=== PATIENT | female | born 1990 | race Caucasian/White ===

== ENCOUNTER 2020-01-04 21:13 | Observation (INO) | payer BC, SELFPAY ==
--- NOTE | 2020-01-04 21:48 | OBADM ---
This patient, Cathy Bennett, admitted to the OB room [facility] for observation. Patient/family oriented to hospital policies and general routines including ID bracelet, bed and alarms, visiting hours, pain management, procedures, bathroom and other care routines, personal items, smoking policy, room service/diet, and visiting hours. Patient/Family are encouraged to report perceived risks to care and to ask questions if they do not understand what they are told or what they should do.
--- NOTE | 2020-01-05 15:54 | PM.OBTRLD ---
OB - Triage/Final Diagnosis Visit Information Date of evaluation: 01/04/20 Reason for evaluation: other (headache)
== END 2020-01-04 22:00 | disposition home or self-care (01) ==
PROVIDERS: Admitting Provider Student in an Organized Health Care Education/Training Program; Visit Provider Student in an Organized Health Care Education/Training Program
DX: O26.893 Other specified pregnancy related conditions, third trimester (principal); R51 Headache; Z3A.39 39 weeks gestation of pregnancy
CPT/HCPCS: G0378; G0379

== ENCOUNTER 2020-01-10 17:53 | Inpatient (IN) | payer BC, SELFPAY ==
[2020-01-10] VITALS (21 sets, daily range): BP systolic 89–133; BP diastolic 51–87; PULSE 71–101; TEMP 36.8; O2SAT 99; BMI 37.0
--- NOTE | 2020-01-10 18:17 | LDADM ---
This patient, Cathy Bennett, was admitted to Labor/Delivery/Recovery 105 on 01/10/20 at 17:53. Plans for labor, pain management and were discussed with patient. Patient/family oriented to hospital policies and general routines including ID bracelet, bed and alarms, visiting hours, pain management, procedures, bathroom and other care routines, personal items, smoking policy, room service/diet and guest tray routines, infant security routines, and visiting hours. Patient/Family are encouraged to report perceived risks to care and to ask questions if they do not understand what they are told or what they should do. See OBIX for further documentation.
[2020-01-10 18:49] LABS: Basophils Percent Auto 0.2 % (0.2-1.2); Eosinophils Percent Auto 0.2 % (0-4.4); Hemoglobin 9.7 g/dL (12.0-15.0); Immature Granulocyte Percent A 0.8 % (0-0.5); Lymphocytes Absolute Auto 2.25 K/mm3 (0.9-3.2); Lymphocytes Percent Auto 18.2 % (18.3-44.2); Mean Corpuscular HGB Conc 33.4 g/dl (32-36); Mean Corpuscular Hemoglobin 28.2 pg (26-34); Mean Corpuscular Volume 84.3 fl (80-100); Mean Platelet Volume 11.6 fl (7.4-10.4); Monocytes Percent Auto 7.8 % (2.6-8.5); Neutrophils Percent Auto 72.8 % (45.5-73.1); Platelet Count Result 221 k/mm3 (150-375); Red Blood Count 3.44 M/mm3 (4.2-5.4); White Blood Count 12.4 K/mm3 (4.5-10.0)
[2020-01-10] MEDS: DINOPROSTONE 10 MG VAG INSERT VAGINAL (18:49)
[2020-01-10] MEDS: FLUOXETINE HCL 20 MG CAP PO (21:40)
[2020-01-10] MEDS: ZOLPIDEM TARTRATE 5 MG TABLET PO (21:42)
[2020-01-10] MEDS: FAMOTIDINE 20 MG/2 ML VIAL IV PUSH (21:43)
[2020-01-11] VITALS (168 sets, daily range): BP systolic 98–151; BP diastolic 49–137; PULSE 60–247; TEMP 36.6–37.8; O2SAT 94–100
[2020-01-11] MEDS: LACTATED RINGERS 1,000 ML 125 ML IV CONT (05:32)
[2020-01-11] MEDS: OXYTOCIN 30 UNITS/NS 500 ML 30 UNITS/500 ML BAG 6 UNITS IV CONT (05:33)
--- NOTE | 2020-01-11 05:46 | P.PNAN_ITS ---
Anes - Eval Pre Procedure Procedure: labor epidural Date/Time: 01/11/20 05:46 Surgeon: dell Pre Op Diagnosis: Induction of Labor Patient Data Age: 29 Gender: F Height: 1.6 m Weight: 94.75 kg Last Vital Signs Temp 36.6 C 01/11/20 05:13 Pulse 84 01/11/20 05:37 BP 120/77 01/11/20 05:37 Pulse Ox 99 01/10/20 22:33 Allergies Allergy/AdvReac Type Severity Reaction Status Date / Time No Known Allergies Allergy Verified 12/12/19 15:39 Home Medications Medication Instructions Recorded Confirmed Type PNV cmb#95-ferrous fumarate-FA 1 tablet PO DAILY 12/12/19 12/12/19 History [] fluoxetine 20 mg PO DAILY 12/12/19 12/12/19 History Laboratory Tests 01/10/20 01/10/20 01/10/20 18:41 18:41 18:41 WBC 12.4 K/mm3 H K/mm3 (4.5-10.0) RBC 3.44 M/mm3 L M/mm3 (4.2-5.4) Hgb 9.7 g/dL L g/dL (12.0-15.0) Hct 29.0 % L % (37.0-47.0) MCV 84.3 fl fl (80-100) MCH 28.2 pg pg (26-34) MCHC 33.4 g/dl g/dl (32-36) RDW 13.0 % % (11.5-14.5) Plt Count 221 k/mm3 k/mm3 (150-375) MPV 11.6 fl H fl (7.4-10.4) Immature Gran % (Auto) 0.8 % H % (0-0.5) Neut % (Auto) 72.8 % % (45.5-73.1) Lymph % (Auto) 18.2 % L % (18.3-44.2) [place] % (Auto) 7.8 % % (2.6-8.5) Eos % (Auto) 0.2 % % (0-4.4) Baso % (Auto) 0.2 % % (0.2-1.2) Lymph # (Auto) 2.25 K/mm3 K/mm3 (0.9-3.2) [place] # (Auto) 1.0 K/mm3 H K/mm3 (0.1-0.6) Eos # (Auto) 0.0 K/mm3 K/mm3 (0-0.3) Baso # (Auto) 0.0 K/mm3 K/mm3 (0.0-0.1) Abs Immat Gran (auto) 0.10 K/mm3 H K/mm3 (0.00-0.031) Absolute Neuts (auto) 9.0 K/mm3 H K/mm3 (1.3-6.7) Absolute Nucleated RBC 0.0 K/mm3 K/mm3 (0.0-0.012) Nucleated RBC % 0.0 % % (0.0-0.2) RPR Pending Blood Type A Positive Antibody Screen Negative Patient hx anesthesia problems: none Family hx anesthesia problems: none [facility] Family History Family History (Updated 12/12/19 @ 15:42 by Abilio Pineda RN) Other No pertinent family history Social History Social History Smoking status: Never smoker Second hand tobacco smoke exposure: No Substance use: never Gender identity (if verbalized by the patient): Female Spiritual care concerns: No Exam Day of Procedure 01/11/20 05:46
[2020-01-11 07:06] LABS: Rapid Plasma Reagin Non-Reactive (NonReactive)
--- NOTE | 2020-01-11 08:30 | WPDOBADMIT ---
Obstetrics - Admit Note Admission Note: record reviewed. Additions to the history and/or subsequent changes in the physical findings follow. 29 y/o G1 at 40 2/7 weeks here for induction of labor. Cervidil last night, has been withdrawn. Receiving oxytocin. GBS neg. AVSS NST reactive TOCO: contractions irregularly ABD soft, nontender, gravid, vertex EXT nontender Cervix 2/80/-2. AROM with clear fluid. A: IUP at term. P: Oxytocin. Anticipate .
--- NOTE | 2020-01-11 12:32 | PM.OBPNLAB ---
Pain Control Date/time seen: 01/11/20 12:32 Comments: Feeling more painful contractions. Pelvic Exam Dilation (cm): 3 Effacement (%): 80 station: -2 Comments: IUPC placed. Contractions Contraction frequency: 3 Contraction pattern: Regular Status status: Category l Assessment and Plan Comments: IUPC placed. She is considering epidural. Continue labor.
[2020-01-11] MEDS: LACTATED RINGERS 1,000 ML 999 ML IV CONT ×2 (12:44→16:41)
[2020-01-11] MEDS: ONDANSETRON INJ 4 MG/2 ML VIAL IV PUSH (16:27)
[2020-01-11] MEDS: FAMOTIDINE 20 MG/2 ML VIAL IV PUSH (16:41)
[2020-01-12] VITALS (21 sets, daily range): BP systolic 109–129; BP diastolic 61–83; PULSE 78–142; RESP 14–20; TEMP 36.6–37.2; O2SAT 93–100
--- NOTE | 2020-01-12 00:05 | PM.OBPNLAB ---
Pain Control Date/time seen: 01/12/20 00:05 Comments: Pushing Pelvic Exam Dilation (cm): 10 Effacement (%): 100 station: +2 Contractions Contraction frequency: 3 Contraction pattern: Regular Status status: Category ll Assessment and Plan Comments: Continue pushing.
[2020-01-12] MEDS: OXYTOCIN 30 UNITS/NS 500 ML 30 UNITS/500 ML BAG 999 UNITS IV CONT (00:42)
--- NOTE | 2020-01-12 00:52 | PM.OBPRVD ---
OB - Delivery Note Procedure Delivery date: 01/12/20 Procedure: Induction of labor with Induction method: per pitocin protocol Delivery monitor: external FHT, external uterine and internal uterine Route of delivery: Laceration description: Perineal - 2nd Degree Delivery repair: vicryl (3-0) Specimen: Yes (cord blood) Estimated blood loss (mL): 130 Anesthesia type: Epidural Disposition: PACU Complications: None Narrative: 29 y/o primigravida at 40 3/7 weeks gestation who presented to the hospital for induction of labor. Cervidil was placed overnight. The following morning, the Cervidil was withdrawn and oxytocin was administered intravenously. Amniotomy was performed with return of clear fluid. She received an epidural for pain control. Her labor progressed and her cervix dilated completely. She pushed with good effort and delivered the infant's head to the perineum from STACY position. A loose nuchal cord was splinted and the body delivered. The cord was reduced. The nose and mouth were bulb suctioned. After a delay, the cord was clamped and cut. The was handed off the field. Cord blood was collected. The placenta delivered spontaneously and was grossly normal in appearance. The usual 3 vessel cord was noted. A second degree midline perineal laceration was sustained. This was reapproximated using 3 0 Vicryl in the usual layered fashion. Excellent hemostasis resulted as did excellent reapproximation of the normal anatomy. Needle and instrument counts were correct. The patient was taken to recovery room in stable condition. The went to the nursery in stable condition. I was present and scrubbed for the entire delivery. Baby Date of : 01/12/20 Time of : 00:32 Weeks of gestation at delivery: 40 gender: Female Weight (pounds): 9 Weight (ounces): 3 presentation: vertex Placenta delivery description: Spontaneous and Normal Configuration cord vessel description: 3 Vessels and Nuchal Cord score one minute: 7 score five minutes: 8
--- NOTE | 2020-01-12 00:55 | PM.OBDSVD ---
DS: Diagnosis Discharge Diagnosis (1) Term : Code(s): Z34.90 - Encounter for supervision of normal , unspecified, unspecified trimester Status: Acute OB - DS: Summary OB Procedures : None OB Procedures Intrapartum: Spontaneous Vag Delivery OB Procedures: : None Time Spent with Patient Time attestation: Total time spent providing and/or coordinating discharge services: DS: Data Data Completed and Pending Labs on day of discharge: Labs from last 24 hours 01/10/20 18:41 RPR Non-reactive Discharge Plan Discharge Attending physician on discharge: Yung Ibrahim Discharging Clinician: Yung Ibrahim Patient Disposition: Home, Self-Care Activity: pelvic rest Diet: regular Discharge Instructions: Call or return if temperature above 100.4? F, increased abdominal pain, increased vaginal bleeding or any new problems. Stand Alone Forms: General Discharge Information Follow-up/Referrals: Yung Ibrahim MD [Physician] - (6 weeks) Discharge Medications: New ibuprofen 600 mg tablet 600 mg PO Q6H PRN (Reason: cramps) Qty: 30 RF: 0 ferrous sulfate 325 mg (65 mg iron) tablet 325 mg PO DAILY Qty: 30 RF: 0 fluoxetine 20 mg Tablet 20 mg PO DAILY Qty: 30 RF: 2 No Action fluoxetine 20 mg Capsule 20 mg PO DAILY RF: 0 PNV cmb#95-ferrous fumarate-FA [] 28 mg iron- 800 mcg Tablet 1 tablet PO DAILY RF: 0 Date of admission: 01/10/20 17:53 Primary Care Provider: UNKNOWN,DOCTOR Admitting Provider: Yung Ibrahim Attending physician on admission: Yung Ibrahim
[2020-01-12] MEDS: OXYTOCIN 30 UNITS/NS 500 ML 30 UNITS/500 ML BAG 125 UNITS IV CONT (01:24)
[2020-01-12] MEDS: IBUPROFEN 600 MG TABLET PO ×4 (01:36→23:37)
[2020-01-12] MEDS: BENZOCAINE 20% AER SPR (*SP) 56 GM CAN 1 SPRAY TOPICAL (02:49)
[2020-01-12] MEDS: WITCH HAZEL 40 PADS 1 PAD TOPICAL (02:49)
--- NOTE | 2020-01-12 07:18 | PM.OBPNVD ---
OB - PN: Subj Subjective Date/time seen: 01/12/20 07:18 Patient comments: no complaints, pain well controlled and tolerating diet [place] feeding status: exclusively breast feeding Narrative: patient doing well this AM. No complaints. Pain is well controlled. She reports minimal bleeding. She is resting comfortably in bed, has not yet ambulated. She has not yet attempted PO. She denies N/V, fever, chills. OB - PN: Obj Data Labs CBC & Chem 7: 01/10/20 18:41 OB - PN A/P Plan day: 1 Plan: routine care Comments: patient doing well H/H pending for this AM continue routine care Time Spent With Patient Time: Total time spent is greater than 50% in coordination of care (as documented) at patient's floor/unit and/or counseling patient: Time with patient: less than 15 minutes Review of Systems Review of Systems: All systems reviewed & are unremarkable except as noted in HPI and below Exam Const: General: comfortable and no acute distress Resp: Effort & Inspection: normal respiratory effort Cardio: Rate: regular rate GI: GI Palp: Yes Soft to palpation and No Tenderness to palpation present (GI) Auscultation: normal bowel sounds Other: fundus firm and below umbilicus. Psych: Affect: normal affect
[2020-01-12] MEDS: ACETAMINOPHEN 325 MG TABLET 650 MG PO (09:50)
[2020-01-12] MEDS: FLUOXETINE HCL 20 MG CAP PO (09:50)
[2020-01-12] MEDS: POLYSACCHARIDE IRON COMPLEX 150 MG CAPSULE PO ×2 (09:51→15:53)
[2020-01-12] MEDS: DOCUSATE SODIUM 100 MG CAPSULE PO ×2 (09:51→15:53)
[2020-01-12] MEDS: MULTIVIT/MIN/PREN/FOL AC/IRON TABLET 1 TAB PO (09:51)
--- NOTE | 2020-01-12 10:05 | PC.NURSE ---
Consult with pt., mother reports infant has been sleepy and using a nipple shield for feedings. Mother feels she needs to wean infant quickly from shield. Reviewed shield is used to assist and maintain latch, and does not need to quickly wean. Discussed nipple shield precautions and possible complications. Instructions given on application and cleaning of shield. Patient able to return demonstration on proper application of shield. Discussed the need to initiate pumping if continues to nurse with the shield. Patient verbalizes understanding. Demonstrated stimulation techniques to wake for feeding. Several minutes of stimulation to wake infant. Assisted with infant to breast. Reviewed positioning/alignment in cross cradle, holding breast in U hold and guided asymmetrical latch on. Discussed rational for each. Infant was able to latch correctly. nursed slowly at first needing constant stimulation, within a few minutes began nursing eagerly, with steady draws and occasional swallowing noted. Reviewed signs of a correct latch, effective nursing and suck swallow ratio. Infant was able to maintain latch without discomfort to mother. Nipple care reviewed. Advised to continue to stimulate to keep awake and nursing effectively for increased intake and to assist with maintaining deep latch. Instructed mother to call out for RN assistance if she is unable to latch for feeding or she has discomfort with nursing. Instructed feeding should be initiated three hours from start of last feeding or if feeding cues are noted before. Mother voiced understanding of information shared.
--- NOTE | 2020-01-12 10:45 | PC.NURSE ---
Breast pump provided due to nipple shield use. Instructions given on breast pump care and usage, pumping schedule, nipple care, and collection and storage of breast milk. Encouraged [id number], breast massage and manual expression to stimulate supply. Assessed patient for correct flange size, placement and draw. Patient verbalizes and demonstrates understanding of instructions.
--- NOTE | 2020-01-12 13:35 | PC.NURSE ---
Mother called out for assist with feeding. Demonstrated stimulation techniques to wake for feeding. Assisted with to breast. Reviewed positioning/alignment in football, holding breast in C hold and guided asymmetrical latch on. Attempted to breast without shield, infant was unable to draw nipple in. With shield in place, infant was able to latch correctly. Infant nursed eagerly, with steady draws and occasional swallowing noted. Reviewed signs of a correct latch, effective nursing and suck swallow ratio. was able to maintain latch without discomfort to mother. Nipple care reviewed. Instructed mother to call out for RN assistance if she is unable to latch infant for feeding or she has discomfort with nursing. Instructed feeding should be initiated three hours from start of last feeding or if feeding cues are noted before. Mother voiced understanding of information shared.
[2020-01-12] MEDS: LANOLIN (LANSINOH) 7.5 GM CREAM 1 APPLIC TOPICAL (23:40)
[2020-01-13] MEDS: ACETAMINOPHEN 325 MG TABLET 650 MG PO (04:46)
[2020-01-13 05:26] LABS: Hematocrit 26.2 % (37.0-47.0); Hemoglobin 8.4 g/dL (12.0-15.0)
[2020-01-13 08:25] VITALS: BP 120/72; PULSE 70; RESP 18; TEMP 37.1; O2SAT 100
--- NOTE | 2020-01-13 09:19 | PM.OBPNVD ---
OB - PN: Subj Subjective Date/time seen: 01/13/20 09:19 Narrative: Pain OK. OB - PN: Obj Data Labs CBC & Chem 7: 01/13/20 04:51 Labs: Laboratory Results - last 24 hr 01/13/20 04:51 Hgb 8.4 L Hct 26.2 L OB - PN A/P Plan Comments: A: PPD#1, doing well. P: Routine care. Exam Psych: Other: AVSS ABD soft, nontender, fundus firm EXT nontender
--- NOTE | 2020-01-13 10:00 | PC.NURSE ---
Mother called out for assist feeding. Mother reports she continues to breastfeed with shield, infant was awake most of the night with fussiness. has not fed for 5 hours. Demonstrated stimulation techniques to wake for feeding. Assisted with to breast. Reviewed positioning/alignment in football, holding breast in C hold and guided asymmetrical latch on. Discussed rational for each. Infant was able to latch correctly. nursed eagerly, with steady draws and occasional swallowing noted. Reviewed signs of a correct latch, effective nursing and suck swallow ratio. Infant was able to maintain latch without discomfort to mother. Nipple care reviewed. Suggested mother continue to stimulate during feeding to increase intake and assist infant with maintaining deep latch. Parents are concerned with jaundice and weight loss, advised both are WNL at this time. Reviewed output WNL at this time. Discussed the options for supplementation, parents would like to supplement 15 mls after each feeding. Mother will continue to pump after each feeding and offer EBM as part of supplement if available. Instructed mother to call out for RN assistance if she is unable to latch infant for feeding or she has discomfort with nursing. Instructed feeding should be initiated three hours from start of last feeding or if feeding cues are noted before. Mother voiced understanding of information shared.
[2020-01-13] MEDS: MULTIVIT/MIN/PREN/FOL AC/IRON TABLET 1 TAB PO (10:14)
[2020-01-13] MEDS: FLUOXETINE HCL 20 MG CAP PO (10:15)
[2020-01-13] MEDS: POLYSACCHARIDE IRON COMPLEX 150 MG CAPSULE PO ×2 (10:15→15:48)
[2020-01-13] MEDS: DOCUSATE SODIUM 100 MG CAPSULE PO ×2 (10:17→19:24)
[2020-01-13] MEDS: IBUPROFEN 600 MG TABLET PO ×2 (15:47→21:12)
[2020-01-13 19:30] VITALS: BP 129/71; PULSE 81; RESP 16; TEMP 36.6; O2SAT 99
[2020-01-14 08:10] VITALS: BP 132/84; PULSE 74; RESP 18; TEMP 37.7; O2SAT 98
[2020-01-14] MEDS: MULTIVIT/MIN/PREN/FOL AC/IRON TABLET 1 TAB PO (10:00)
[2020-01-14] MEDS: POLYSACCHARIDE IRON COMPLEX 150 MG CAPSULE PO (10:00)
[2020-01-14] MEDS: IBUPROFEN 600 MG TABLET PO (10:00)
[2020-01-14] MEDS: DOCUSATE SODIUM 100 MG CAPSULE PO (10:00)
[2020-01-14] MEDS: FLUOXETINE HCL 20 MG CAP PO (11:05)
--- NOTE | 2020-01-14 12:46 | PM.OBPNVD ---
OB - PN: Subj Subjective Date/time seen: 01/14/20 12:46 Narrative: Pain OK. Would like to go home. OB - PN: Obj Data Labs CBC & Chem 7: 01/13/20 04:51 OB - PN A/P Plan Comments: A: PPD#2, doing well. P: Home to f/u 6 weeks. Exam Psych: Other: AVSS ABD soft, nontender, fundus firm EXT nontender
[2020-01-15 09:13] VITALS: BP 126/74; PULSE 85; RESP 20; TEMP 36.6; O2SAT 99
== END 2020-01-14 14:48 | disposition home or self-care (01) | DRG 807 ==
LOC: ANHLDR 01-12 00:56 → ANHOB2 01-12 03:34
PROVIDERS: Admitting Provider Obstetrics & Gynecology; Visit Provider Obstetrics & Gynecology
DX: O69.81X0 Labor and delivery complicated by cord around neck, without compression, not applicable or unspecified (principal); Z37.0 Single live birth; Z3A.40 40 weeks gestation of pregnancy; O70.1 Second degree perineal laceration during delivery; O36.8330 Maternal care for abnormalities of the fetal heart rate or rhythm, third trimester, not applicable or unspecified; O99.344 Other mental disorders complicating childbirth; F41.9 Anxiety disorder, unspecified
CPT/HCPCS: 36415; 85014; 85018; 85025; 86592; 86850; 86900; 86901; A9270; J2405; J2590; J2795; J3010; J7120

== ENCOUNTER 2020-12-24 08:31 | Emergency (ER) | payer BC, SELFPAY ==
--- NOTE | ~2020-12-24 | US_ITS ---
EXAMINATION: US OB <= 14 weeks fetus DATE: 12/24/2020 12:50 INDICATION: Right red vaginal bleeding during first trimester of TECHNIQUE: Real-time pelvic ultrasound utilizing both a transvaginal and transabdominal probe was pe rformed. The interpreting radiologist was not present for the study. COMPARISON: None. FINDINGS: The uterus measures 9.3 x 11.7 x 5.8 x 7.7 cm. There is an intrauterine gestational sac. A yolk sac and possible pole are identified. The crown rump length of the presumptive pole measures 4 mm, which correlates with an estimated gestational age of 6 weeks and 1 days. No discernible heart motion is evident on color or M-mode Doppler. There is subtle echogenicity suggesting debris wi thin the gestational sac. Small ill-defined region of decreased echogenicity along the margins of the gestational sac suspicious for small subchorionic hematoma. The right ovary measures 3.3 x 1.6 x 2.7 cm. The left ovary measures 2.3 x 1.7 x 2.4 cm. 12 mm anecho ic likely corpus luteum cyst at the left ovary. There is no free fluid in the pelvis. IMPRESSION: 1. Single intrauterine gestational sac with possible 4 mm pole which is without discernible fet al heart motion on color Doppler which could be due to early . Both the absence of discernib le heart motion however and the increased size of the yolk sac which measures 9 mm do raise con cern for failed . 2. Gestational age by ultrasound presumptive 4 mm pole of 6 weeks 1 day(s) +/- 3 day(s) with u ltrasound estimated date of delivery ([facility]) of 08/18/2021. 3. Suggestion of a small poorly defined subchorionic hematoma along the margins of the gestational sa c. Reviewed, dictated and finalized at location A. IMPRESSION: 1. Single intrauterine gestational sac with possible 4 mm pole which is w ithout discernible heart motion on color Doppler which could be due to ea rly . Both the absence of discernible heart motion however and t he increased size of the yolk sac which measures 9 mm do raise concern for fail ed . 2. Gestational age by ultrasound presumptive 4 mm pole of 6 weeks 1 day( s) +/- 3 day(s) with ultrasound estimated date of delivery ([facility]) of 08/18/2021. 3. Suggestion of a small poorly defined subchorionic hematoma along the margins of the gestational sac.
[2020-12-24 08:34] VITALS: BP 128/79; PULSE 64; RESP 18; TEMP 36.4; O2SAT 100
[2020-12-24 10:20] VITALS: BP 112/64; PULSE 62; RESP 20; O2SAT 100
[2020-12-24] MEDS: SODIUM CHLORIDE 0.9% IV 1,000 ML 999 ML IV CONT (11:00)
[2020-12-24 11:11] LABS: Basophils Percent Auto 0.4 % (0.2-1.2); Eosinophils Percent Auto 0.9 % (0-4.4); Hematocrit 34.6 % (37.0-47.0); Hemoglobin 11.9 g/dL (12.0-15.0); Immature Granulocyte Absolute 0.01 K/mm3 (0.00-0.031); Immature Granulocyte Percent A 0.2 % (0-0.5); Lymphocytes Absolute Auto 1.63 K/mm3 (0.9-3.2); Lymphocytes Percent Auto 35.5 % (18.3-44.2); Mean Corpuscular HGB Conc 34.4 g/dl (32-36); Mean Corpuscular Hemoglobin 30.6 pg (26-34); Mean Corpuscular Volume 88.9 fl (80-100); Monocytes Absolute Auto 0.4 K/mm3 (0.1-0.6); Monocytes Percent Auto 9.2 % (2.6-8.5); Neutrophils Absolute Auto 2.5 K/mm3 (1.3-6.7); Neutrophils Percent Auto 53.8 % (45.5-73.1); Platelet Count Result 188 k/mm3 (150-375); Red Blood Count 3.89 M/mm3 (4.2-5.4); Red Cell Distribution Width 11.9 % (11.5-14.5); White Blood Count 4.6 K/mm3 (4.5-10.0)
[2020-12-24 11:21] LABS: Add Urine Microscopic? YES; Alanine Aminotransferase 12 U/L (4-35); Albumin Level 4.1 g/dL (3.5-5.1); Alkaline Phosphatase 50 U/L (38-126); Anion Gap 5 mmol/L (8-16); Appearance Urine Clear (Clear); Aspartate Amino Transferase 21 U/L (14-36); Bilirubin Urine Negative (Negative); Bilirubin,Total 0.5 mg/dL (0.2-1.3); Blood Urea Nitrogen 9 mg/dL (7-17); Blood Urine 1+ (Negative); Calcium 8.8 mg/dL (8.4-10.2); Carbon Dioxide 27 mmol/L (22-30); Chloride 106 mmol/L (98-107); Color Urine Straw (Yellow); Estimated CRCL calculation 124 ml/min; Estimated Glomerular Filt Rate > 60; Glucose 97 mg/dL (65-105); Glucose Urine UA Negative (Negative); Ketones Urine Negative (Negative); Leukocyte Esterase Ur Negative LEU/UL (Negative); Nitrate Urine Negative (Negative); Potassium 4.1 mmol/L (3.4-5.0); Protein Urine Negative (Negative); RBC Urine 0-2 /hpf (0-2); Sodium 138 mmol/L (137-145); Specific Grav Ur 1.005 (1.001-1.035); Squamous Epithelial Cell Urine Rare /hpf (Few); Urobilinogen Urine Negative mg/dL (<2.0); WBC Urine 0-3 /hpf
[2020-12-24 11:56] VITALS: BP 94/51; PULSE 55; O2SAT 100
--- NOTE | 2020-12-24 13:37 | ED.GENADULT ---
HPI - General Adult General Chief complaint: Vaginal Bleeding Stated complaint: 10 wk preg with vag bleeding Time Seen by Provider: 12/24/20 10:06 Source: patient, family and old records reviewed Mode of arrival: ambulatory Limitations: no limitations History of Present Illness HPI narrative: Patient is a 30-year-old female who presents to emergency department for evaluation of cramping in the pelvis as well as some light bleeding noticed that this morning patient is at 10 weeks for last menstrual period has follow-up with her dye house hand on Saturday Dr. Ibrahim patient on arrival is in no distress denying any pain denies any recent illness injury or trauma and is otherwise resting comfortably in the room in no distress Related Data Home Medications Medication Instructions Recorded Confirmed fluoxetine 40 mg PO DAILY 12/24/20 Allergies Allergy/AdvReac Type Severity Reaction Status Date / Time No Known Allergies Allergy Verified 12/24/20 08:37 Review of Systems Review of Systems: All systems reviewed & are unremarkable except as noted in HPI and below PMFSH Family History Family History (Updated 12/12/19 @ 15:42 by Abilio Pineda RN) Other No pertinent family history Social History Social History Smoking status: Never smoker Second hand tobacco smoke exposure: No Substance use: never Gender identity (if verbalized by the patient): Female Spiritual care concerns: No Exam Narrative: Exam Narrative: GENERAL: Well-appearing, well-nourished, and in no acute distress. HEAD: Normocephalic, atraumatic. EYES: PERRLA and EOMI. ENT: Nares clear, no rhinorrhea or epistaxis. Mucous membranes moist. CHEST: Clear to auscultation. No respiratory distress. No wheezes rales or rhonchi HEART: Regular rate and rhythm. No murmur heard. Normal peripheral pulses. ABDOMEN: Soft, nontender, nondistended EXTREMITIES: Normal range of motion. No edema. SKIN: Warm, dry, no rash. NEURO: No focal deficits. Alert and oriented x3. PSYCH: Normal mood and affect. Course Course Emergency Course: Patient in the room no distress aware of case findings treatment plan and diagnosis will follow with dye house hand on Saturday hemodynamically stable no distress agreeing to follow-up as an directed given reasons to return Consultations Consultation #1: Case discussed with Dr. Henry and will follow the patient in clinic on Saturday Date: 12/24/20 Time: 13:40 Vital Signs Vital signs: Vital Signs Temperature 97.5 F L 12/24/20 08:34 Pulse Rate 64 12/24/20 08:34 Respiratory Rate 18 12/24/20 08:34 Blood Pressure 128/79 12/24/20 08:34 Pulse Oximetry 100 12/24/20 08:34 Temperature 97.5 F L 12/24/20 08:34 Pulse Rate 55 L 12/24/20 11:56 Respiratory Rate 20 12/24/20 10:20 Blood Pressure 94/51 L 12/24/20 11:56 Pulse Oximetry 100 12/24/20 11:56 Medical Decision Making MDM Narrative Medical decision making narrative: Patient in the room in no distress aware of case findings treatment plan and diagnosis. Patient nontoxic-appearing Vital Signs Vital Signs: Vital Signs Temperature 97.5 F L 12/24/20 08:34 Pulse Rate 64 12/24/20 08:34 Respiratory Rate 18 12/24/20 08:34 Blood Pressure 128/79 12/24/20 08:34 Pulse Oximetry 100 12/24/20 08:34 Temperature 97.5 F L 12/24/20 08:34 Pulse Rate 55 L 12/24/20 11:56 Respiratory Rate 20 12/24/20 10:20 Blood Pressure 94/51 L 12/24/20 11:56 Pulse Oximetry 100 12/24/20 11:56 Lab Data Result diagrams: 12/24/20 10:52 12/24/20 10:52 Labs: Lab Results 12/24/20 12/24/20 12/24/20 Range/Units 10:52 10:52 10:52 WBC 4.6 (4.5-10.0) K/mm3 RBC 3.89 L (4.2-5.4) M/mm3 Hgb 11.9 L D (12.0-15.0) g/dL Hct 34.6 L (37.0-47.0) % MCV 88.9 (80-100) fl MCH 30.6 (26-34) pg MCHC 34.4 (32-36) g/dl RDW 11.9 (11.5-14.5) % Plt
[2020-12-24 14:22] VITALS: PULSE 86; O2SAT 100
== END 2020-12-24 14:23 | disposition home or self-care (01) ==
PROVIDERS: Emergency Medicine Emergency Medical Services; Emergency Provider Emergency Medicine
DX: O26.891 Other specified pregnancy related conditions, first trimester (principal); R10.2 Pelvic and perineal pain; Z3A.10 10 weeks gestation of pregnancy
CPT/HCPCS: 36415; 76801; 80053; 81001; 84702; 85025; 96360; 99284; J7030

== ENCOUNTER → 2020-12-27 03:19 | Outpatient (CLI) | payer BC, SELFPAY ==
[2020-12-27 20:31] LABS: SARS-CoV-2 RNA PCR Negative
== END ==
PROVIDERS: Visit Provider Obstetrics & Gynecology
DX: Z01.812 Encounter for preprocedural laboratory examination (principal); Z20.822 Contact with and (suspected) exposure to COVID-19
CPT/HCPCS: C9803; U0003; U0005

== ENCOUNTER 2020-12-28 02:46 | Day surgery (SDC) | payer BC, SELFPAY ==
[2020-12-26 15:08] VITALS: BMI 34.5
[2020-12-28 09:36] VITALS: BP 114/61; PULSE 81; RESP 16; TEMP 36.7; O2SAT 100
[2020-12-28] MEDS: LACTATED RINGERS 1,000 ML 30 ML IV CONT (09:45)
[2020-12-28] MEDS: ACETAMINOPHEN 500 MG TABLET 1000 MG PO (09:50)
[2020-12-28 09:58] VITALS: BMI 34.7
--- NOTE | 2020-12-28 10:44 | PM.IMHP ---
H&P: HPI History of Present Illness Date/Time: 12/28/20 10:44 30 y/o G1 with LMP 10/14/20, putting her at 10w5d gestation. Has had bleeding. Ultrasound showed IUP with CRL 6w2d, no cardiac motion. Chief Complaint: Miscarriage Review of Systems Review of Systems: All systems reviewed & are unremarkable except as noted in HPI and below PMFSH Past Medical History Medical History Thyroid nodule Surgical History Surgical History History of LEEP (loop electrosurgical excision procedure) of cervix complicating Family History Family History Other No pertinent family history Social History Social History Smoking status: Never smoker Second hand tobacco smoke exposure: No Alcohol intake: never Substance use: never Substance use type: does not use Living arrangements: with family Gender identity (if verbalized by the patient): Female Spiritual care concerns: No Meds Home Medications and Allergies Home Medications Medication Instructions Recorded Confirmed Type fluoxetine 40 mg PO DAILY 12/24/20 12/26/20 History vwwevjwv-rwt-Xl-FA 1 tablet PO DAILY 12/26/20 12/26/20 History [] Allergies Allergy/AdvReac Type Severity Reaction Status Date / Time No Known Allergies Allergy Verified 12/28/20 09:33 Vital Signs Vital Signs - 24 hr 12/28/20 09:36 Temperature 36.7 C Pulse Rate 81 Respiratory Rate 16 Blood Pressure 114/61 Pulse Oximetry 100 Exam Narrative: Exam Narrative: AVSS Const: Orientation/consciousness: patient oriented x3 Other: Well-developed, well-nourished female in no acute distress. Neck: Thyroid: diffusely enlarged Lymphatic: no lymphadenopathy noted (in neck, axilla or inguinal nodes) Resp: Effort & Inspection: normal respiratory effort Auscultation: clear to auscultation bilaterally Cardio: Rate: regular rate Rhythm: regular rhythm Heart sounds: S1 normal heart sound present and S2 normal heart sound present GI: Other: ABD: Soft, nontender, nondistended. No guarding or rebound tenderness. No hepatosplenomegaly. : General: Yes no CVA tenderness Other: Deferred to OR Back/Spine/Pelvis: Back: no CVA tenderness Skin: General skin exam: normal color and no rashes or lesions noted Neuro: General: patient oriented x3 Extrem: Other: Extremities: nontender with no edema Psych: Mental Status: mental status grossly normal Affect: normal affect Assessment and Plan Assessment and plan (1) Incomplete : Code(s): O03.4 - Incomplete spontaneous without complication Status: Acute Assessment and Plan: A: Incomplete SAB. P: Offered expectant management vs. dilation with suction curettage. She understands risks of surgery to include risks of anesthesia, risks of pain, infection, bleeding, blood products, thromboembolic phenomena and damage to adjacent structures such as bowel, bladder, ureters, blood vessels and nerves. She understands all these risks and elects to proceed with surgery.
--- NOTE | 2020-12-28 11:27 | WPDANESEPPF ---
Anes - Initial Pre Proc Eval Procedure: Operation Date: 12/28/20 11:30 Proposed Procedures p Suction Dilatation and Curettage - Yung Ibrahim MD Date/Time: 12/28/20 11:27 Surgeon: Yung Ibrahim MD Pre Op Diagnosis: missed AB Patient Data Age: 30 Gender: F Height: 5 ft 3 in Weight: 88.8 kg Last Vital Signs Temp 36.7 C 12/28/20 09:36 Pulse 81 12/28/20 09:36 Resp 16 12/28/20 09:36 BP 114/61 12/28/20 09:36 Pulse Ox 100 12/28/20 09:36 Allergies Allergy/AdvReac Type Severity Reaction Status Date / Time No Known Allergies Allergy Verified 12/28/20 09:33 Home Medications Medication Instructions Recorded Confirmed Type fluoxetine 40 mg PO DAILY 12/24/20 12/26/20 History qipkcxsd-zih-Lh-FA 1 tablet PO DAILY 12/26/20 12/26/20 History [] Patient hx anesthesia problems: none Family hx anesthesia problems: none [facility] Past Medical History Medical History Thyroid nodule Surgical History Surgical History History of LEEP (loop electrosurgical excision procedure) of cervix complicating Family History Family History Other No pertinent family history Social History Social History Smoking status: Never smoker Second hand tobacco smoke exposure: No Alcohol intake: never Substance use: never Substance use type: does not use Living arrangements: with family Gender identity (if verbalized by the patient): Female Spiritual care concerns: No Anes - Eval Final PreProcedure Day of Procedure 12/28/20 11:27 Patient weight: overweight Heart: regular rate and rhythm Lungs: clear to auscultation Airway: Mallampati scale class II Neurological: alert and oriented Last oral intake: >/= 8 hours ASA classification: II Emergent: no Anesthetic plan: proceed Anesthesia type and monitoring: general GIVS and standard monitoring Informed Consent: The patient's anesthetic plan and its attendant risks and benefits were discussed with the patient/family/POA. Questions were solicited and answers provided to the satisfaction of the patient/family/POA.
--- NOTE | 2020-12-28 11:45 | SUR.PREOP ---
1145- Clarified with Dr. Ibrahim patient is A positive and if RH type needing to be drawn today prior to procedure. Per Dr. Ibrahim labs do not need to be obtained with patient being A positive type.
--- NOTE | 2020-12-28 11:48 | WPDHPUPDATE1 ---
History and Physical Update Update Date/Time: 12/28/20 11:48 History and Physical has been reviewed, including an updated exam of the patient. There are NO changes in the patient's condition. Risks, benefits, and alternatives have been discussed and questions answered. Patient agrees to proceed with procedure.
--- NOTE | 2020-12-28 12:05 | SUR.PREOP ---
1205- Notified patient and spouse, Yvon OR delayed at this time approximately 35-45 minutes. Patient and spouse verbalized understanding.
--- NOTE | 2020-12-28 12:54 | PM.PROC ---
Procedure Note - Detailed Date of procedure: 12/28/20 Pre-op diagnosis: missed AB Incomplete SAB Post-op diagnosis: same Procedure performed: Dilation and suction curettage Description of procedure: The patient was taken to the operating room where she was prepared and draped in the usual sterile fashion in the dorsal lithotomy position. The bladder was drained with a red rubber catheter. A sterile speculum was placed into the vagina. The anterior lip of the cervix was grasped with a single-tooth tenaculum. Ten mL of 1% lidocaine was administered in a paracervical block. The cervix was gently dilated using Hegar dilators until an 8mm dilator could be passed. The 8mm curved tip suction curette was advanced. Suction curettage was performed and products of conception were aspirated. Sharp curettage was then performed until a good uterine cry was noted. A final pass with the suction curette was made. The tenaculum was removed. Hemostasis was excellent. Sponge, lap, needle and instrument counts were correct. The patient was taken to the recovery room in stable condition. I was present and scrubbed for the entire procedure. Implants: None Anesthesia: local (1% lidocaine paracervical block) Surgeon: Yung Ibrahim MD Estimated blood loss (mL): 30 Drains: No Packing: No Pathology: yes (Endometrial curettings) Complications: None Condition: stable Disposition: PACU Findings: Products of conception noted.
[2020-12-28 12:57] VITALS: BP 95/50; PULSE 86; RESP 16; O2SAT 91
[2020-12-28 13:25] VITALS: BP 101/53; PULSE 58; RESP 16; O2SAT 100
[2020-12-28 13:50] VITALS: BP 100/55; PULSE 60; RESP 16
== END 2020-12-28 14:00 | disposition home or self-care (01) ==
PROVIDERS: Visit Provider Obstetrics & Gynecology
PROC: (CPT 59820; principal; 2020-12-28 11:30)
DX: O02.1 Missed abortion (principal)
CPT/HCPCS: 59820; 88305; A9270; J1100; J1885; J2250; J2405; J2704; J3010; J7120

== ENCOUNTER 2021-08-21 14:35 | Outpatient (CLI) | payer BC, SELFPAY ==
--- NOTE | ~2021-08-21 | US_ITS ---
EXAMINATION: US thyroid DATE: 08/21/2021 16:00 INDICATION: Thyroid nodules. TECHNIQUE: Multiple ultrasound images of the thyroid were obtained. COMPARISON: None. FINDINGS: The right thyroid lobe measures 5.1 x 1.7 x 2.0 cm. The left thyroid lobe measures 5.1 x 1.7 x 2.4 c m. There are multiple wider than tall, solid or predominant solid hypoechoic nodules with smooth mar gins and without echogenic foci (TI-RADS 4, moderately suspicious , FNA if >=1.5 cm, annual followup is >=1 cm) scattered throughout both thyroid lobes. The largest include a 2.4 cm nodule at the isthmu s, 2.2 cm and 2.0 cm nodules in the left thyroid lobe and 1.4 cm in the right thyroid lobe. IMPRESSION: 1. Multinodular goiter. There are 3 nodules meeting criteria for ultrasound-guided biopsy and would r ecommend biopsy of the 2 largest nodules at the isthmus and left thyroid lobe. Reviewed, dictated and finalized at location A. [employer] [facility] IMPRESSION: 1. Multinodular goiter. There are 3 nodules meeting criteria for ultrasound-jose ded biopsy and would recommend biopsy of the 2 largest nodules at the isthmus a nd left thyroid lobe.
== END 2021-08-21 14:36 | disposition home or self-care (01) ==
PROVIDERS: Visit Provider Obstetrics & Gynecology
DX: E04.9 Nontoxic goiter, unspecified (principal)
CPT/HCPCS: 76536

== ENCOUNTER 2021-10-03 10:37 | Emergency (ER) | payer BC, SELFPAY ==
--- NOTE | ~2021-10-03 | CT_ITS ---
EXAMINATION: CT BRAIN W/O DATE: 10/03/2021 12:45 INDICATION: Migraine headaches TECHNIQUE: Computed tomography (CT) of the head was performed without intravenous contrast. The dose- length product was 605.33 mGy-cm. Automated exposure control and iterative reconstruction technique w ere employed. COMPARISON: No prior studies for comparison. FINDINGS: Normal brain parenchymal volume for age. Normal vieira-white differentiation. No acute intrac ranial hemorrhage, infarction, mass or mass effect. No ventriculomegaly or midline shift. Midline sagittal images demonstrate a normal corpus callosum, c raniovertebral junction and sella turcica. Basilar cisterns are patent. There is mucosal thickening of the left maxillary and ethmoid sinuses with air-fluid level. IMPRESSION: 1. No acute intracranial abnormality. 2: Mild sinusitis. Reviewed, dictated and finalized at location B. [employer]KER
[2021-10-03 10:51] VITALS: BP 140/79; PULSE 78; RESP 15; TEMP 36.7; O2SAT 100
[2021-10-03 10:59] VITALS: O2SAT 100
[2021-10-03 11:00] VITALS: O2SAT 99
[2021-10-03 12:06] LABS: Add Urine Microscopic? YES; Appearance Urine Clear (Clear); Bacteria Urine 2+ /hpf; Bilirubin Urine Negative (Negative); Blood Urine Negative (Negative); Color Urine Yellow (Yellow); Glucose Urine UA Negative (Negative); Ketones Urine Trace mg/dL (Negative); Leukocyte Esterase Ur Trace LEU/UL (Negative); Mucus Urine Rare /lpf; Nitrate Urine Negative (Negative); Protein Urine Negative (Negative); RBC Urine 0-2 /hpf (0-2); Specific Grav Ur 1.011 (1.001-1.035); Squamous Epithelial Cell Urine Occasional /hpf (Few); WBC Urine 0-3 /hpf
[2021-10-03] MEDS: SODIUM CHLORIDE 0.9% IV 1,000 ML 999 ML IV CONT (12:08)
[2021-10-03] MEDS: ONDANSETRON INJ 4 MG/2 ML VIAL IV PUSH (12:18)
[2021-10-03 12:42] LABS: Thyroid Stimulating Hormone Reflex 0.084 uIU/mL (0.465-4.68)
[2021-10-03] MEDS: diphenhydrAMINE HCl INJ 50 MG/ML VIAL 25 MG IV PUSH (13:25)
[2021-10-03 13:31] LABS: Basophils Percent Auto 0.2 % (0.2-1.2); Eosinophils Percent Auto 0.2 % (0-4.4); Hematocrit 32.8 % (37.0-47.0); Hemoglobin 11.4 g/dL (12.0-15.0); Immature Granulocyte Absolute 0.09 K/mm3 (0.00-0.031); Immature Granulocyte Percent A 0.8 % (0-0.5); Lymphocytes Absolute Auto 1.04 K/mm3 (0.9-3.2); Lymphocytes Percent Auto 9.7 % (18.3-44.2); Mean Corpuscular HGB Conc 34.8 g/dl (32-36); Mean Corpuscular Hemoglobin 31.2 pg (26-34); Mean Corpuscular Volume 89.9 fl (80-100); Monocytes Absolute Auto 0.7 K/mm3 (0.1-0.6); Monocytes Percent Auto 6.8 % (2.6-8.5); Neutrophils Absolute Auto 8.8 K/mm3 (1.3-6.7); Neutrophils Percent Auto 82.3 % (45.5-73.1); Platelet Count Result 157 k/mm3 (150-375); Red Blood Count 3.65 M/mm3 (4.2-5.4); Red Cell Distribution Width 12.2 % (11.5-14.5); White Blood Count 10.7 K/mm3 (4.5-10.0)
[2021-10-03] MEDS: KETOROLAC 15 MG/ML VIAL (*BKC) IV PUSH (13:45)
[2021-10-03 14:18] LABS: Alanine Aminotransferase 13 U/L (4-35); Albumin Level 2.9 g/dL (3.5-5.1); Alkaline Phosphatase 73 U/L (38-126); Anion Gap 8 mmol/L (8-16); Aspartate Amino Transferase 17 U/L (14-36); Bilirubin,Total 0.3 mg/dL (0.2-1.3); Blood Urea Nitrogen 9 mg/dL (7-17); Carbon Dioxide 21 mmol/L (22-30); Chloride 104 mmol/L (98-107); Estimated CRCL calculation 150 ml/min; Estimated Glomerular Filt Rate > 60; Glucose 88 mg/dL (65-110); Potassium 3.8 mmol/L (3.4-5.0); Sodium 133 mmol/L (137-145)
[2021-10-03 14:29] VITALS: BP 126/78; PULSE 74; RESP 16; TEMP 37; O2SAT 98
--- NOTE | 2021-10-03 15:18 | PC.NURSE ---
in room drinking soda and eating chips, no distress, skin pwd and denies any pain
[2021-10-03 16:03] VITALS: BP 126/80; PULSE 78; RESP 16; TEMP 36.6; O2SAT 100
--- NOTE | 2021-10-03 20:02 | ED.GENADULT ---
HPI - General Adult General Chief complaint: Headache Stated complaint: migraine Time Seen by Provider: 10/03/21 11:10 Source: patient and family (Mother) Mode of arrival: ambulatory Limitations: no limitations History of Present Illness HPI narrative: Patient is a 30-year-old female who is 23 weeks presented with chief complaint of headache x5 days that is unremitting. Patient reports that she saw her TRAFFIC MAINTENANCE OFFICER yesterday and was prescribed Fioricet but they have not resolved her headache. Patient reports she has nausea, photophobia, vomiting. She reports feeling swelling and pain to the left side of her head. She denies any fevers or chills. Patient reports she has had a few elevated blood pressure readings of 140 and 145 systolically. Patient denies diagnosis of preeclampsia. Patient reports that she also has a history of thyroid goiters which she is going to see ENT for biopsy. Patient denies any head injury. Patient reports she does not generally have migraines. Related Data Home Medications Medication Instructions Recorded Confirmed fluoxetine 40 mg PO DAILY 12/24/20 12/26/20 rtseipim-fst-Yi-FA 1 tablet PO DAILY 12/26/20 12/26/20 [] zpbuootdff-ojixatfxcszkv-erbm tablet 10/03/21 10/03/21 Allergies Allergy/AdvReac Type Severity Reaction Status Date / Time No Known Allergies Allergy Verified 10/03/21 11:04 Review of Systems Review of Systems: CONSTITUTIONAL: Denies fever, chills, or sweats. EYES: Denies visual changes, redness, or discharge. ENT: Denies rhinorrhea, congestion, sore throat, or otalgia. CARDIOVASCULAR: Denies chest pain, palpitations, or edema. RESPIRATORY: Denies cough or dyspnea. GASTROINTESTINAL: Reports nausea and vomiting denies abdominal pain or diarrhea. GENITOURINARY: Denies dysuria or hematuria. SKIN: Denies rash or itching. MUSCULOSKELETAL: Denies back pain, joint pain, or myalgia. NEUROLOGIC: Reports headache, denies numbness, dizziness, or weakness. PSYCHIATRIC: Denies anxiety or depression. [facility] Past Medical History Medical History Thyroid nodule Surgical History Surgical History History of LEEP (loop electrosurgical excision procedure) of cervix complicating Family History Family History Other No pertinent family history Social History Social History Smoking status: Never smoker Second hand tobacco smoke exposure: No Alcohol intake: never Substance use: never Substance use type: does not use Gender identity (if verbalized by the patient): Female Spiritual care concerns: No Exam Narrative: GENERAL: Well-appearing, well-nourished. Appears uncomfortable. Wearing sunglasses. HEAD: Normocephalic, atraumatic. EYES: PERRLA and EOMI. CHEST: Clear to auscultation. No respiratory distress. No wheezes rales or rhonchi HEART: Regular rate and rhythm. No murmur heard. Normal peripheral pulses. EXTREMITIES: Normal range of motion. No edema. SKIN: Warm, dry, no rash. NEURO: No focal deficits. Alert and oriented x3. PSYCH: Normal mood and affect. Course Vital Signs Vital signs: Vital Signs Temperature 98.1 F 10/03/21 10:51 Pulse Rate 78 10/03/21 10:51 Respiratory Rate 15 10/03/21 10:51 Blood Pressure 140/79 10/03/21 10:51 Pulse Oximetry 100 10/03/21 10:51 Temperature 97.8 F 10/03/21 16:03 Pulse Rate 78 10/03/21 16:03 Respiratory Rate 16 10/03/21 16:03 Blood Pressure 126/80 10/03/21 16:03 Pulse Oximetry 100 10/03/21 16:03 Medical Decision Making MDM Narrative Medical decision making narrative: Consult with patient's TRAFFIC MAINTENANCE OFFICER Dr Ibrahim. He is in agreement with labs CBC, CMP, TSH, CT BRAIN. Benefits outway risks. CT scan was normal. Dr Ibrahim states he approves Toradol
== END 2021-10-03 16:05 | disposition home or self-care (01) ==
PROVIDERS: Physician Assistant; Emergency Provider Emergency Medicine
DX: O99.512 Diseases of the respiratory system complicating pregnancy, second trimester (principal); J01.10 Acute frontal sinusitis, unspecified; R51.9 Headache, unspecified; O99.282 Endocrine, nutritional and metabolic diseases complicating pregnancy, second trimester; E04.2 Nontoxic multinodular goiter; Z3A.23 23 weeks gestation of pregnancy
CPT/HCPCS: 36415; 70450; 80053; 81001; 84439; 84443; 84480; 85025; 96365; 96375; 99284; J0131; J1100; J1200; J1885; J2405; J7030

== ENCOUNTER 2022-01-17 04:48 | Inpatient (IN) | payer BC, SELFPAY ==
[2022-01-17] VITALS (174 sets, daily range): BP systolic 43–127; BP diastolic 16–86; PULSE 63–154; TEMP 35.9–36.8; O2SAT 87–100; BMI 42.5
--- NOTE | 2022-01-17 05:31 | WPDANESEPP ---
Anes - Eval Pre Procedure Date/Time: 01/17/22 05:31 Pre Op Diagnosis: IOL Patient Data Age: 31 Gender: F Height: Weight: Allergies Allergy/AdvReac Type Severity Reaction Status Date / Time No Known Allergies Allergy Verified 01/10/22 13:15 Home Medications Medication Instructions Recorded Confirmed Type fluoxetine 40 mg PO DAILY 12/24/20 12/26/20 History xypvowit-tck-Iq-FA 1 tablet PO DAILY 12/26/20 12/26/20 History [] Patient hx anesthesia problems: none Family hx anesthesia problems: none Results Review: All pre-operative results and documents have been reviewed as part of the pre-operative evaluation. [facility] Past Medical History Medical History Thyroid nodule Surgical History Surgical History History of LEEP (loop electrosurgical excision procedure) of cervix complicating Family History Family History Other No pertinent family history Social History Social History Smoking status: Never smoker Second hand tobacco smoke exposure: No Alcohol intake: never Substance use: never Substance use type: does not use Gender identity (if verbalized by the patient): Female Spiritual care concerns: No Exam Day of Procedure 01/17/22 05:31 Patient weight: obese Heart: regular rate and rhythm Lungs: normal air movement Airway: Mallampati scale Neurological: alert and oriented
[2022-01-17 05:42] LABS: Basophils Percent Auto 0.3 % (0.2-1.2); Eosinophils Absolute Auto 0.1 K/mm3 (0-0.3); Hematocrit 26.9 % (37.0-47.0); Hemoglobin 8.3 g/dL (12.0-15.0); Immature Granulocyte Percent A 1.1 % (0-0.5); Lymphocytes Absolute Auto 2.13 K/mm3 (0.9-3.2); Lymphocytes Percent Auto 24.1 % (18.3-44.2); Mean Corpuscular HGB Conc 30.9 g/dl (32-36); Mean Corpuscular Hemoglobin 24.4 pg (26-34); Mean Corpuscular Volume 79.1 fl (80-100); Mean Platelet Volume 12.2 fl (7.4-10.4); Monocytes Absolute Auto 0.7 K/mm3 (0.1-0.6); Monocytes Percent Auto 7.7 % (2.6-8.5); Neutrophils Absolute Auto 5.8 K/mm3 (1.3-6.7); Neutrophils Percent Auto 65.8 % (45.5-73.1); Platelet Count Result 164 k/mm3 (150-375); Red Cell Distribution Width 14.8 % (11.5-14.5); White Blood Count 8.8 K/mm3 (4.5-10.0)
[2022-01-17] MEDS: LACTATED RINGERS 1,000 ML 125 ML IV CONT ×3 (05:45→16:41)
[2022-01-17] MEDS: OXYTOCIN 30 UNITS/NS 500 ML 30 UNITS/500 ML BAG IV CONT (05:45)
--- NOTE | 2022-01-17 05:47 | LDADM ---
This patient, Cathy Bennett, was admitted to Labor/Delivery/Recovery 105 on 01/17/22 at 04:48. Plans for labor, pain management and were discussed with patient. Patient/family oriented to hospital policies and general routines including ID bracelet, bed and alarms, visiting hours, pain management, procedures, bathroom and other care routines, personal items, smoking policy, room service/diet and guest tray routines, security routines, and visiting hours. Patient/Family are encouraged to report perceived risks to care and to ask questions if they do not understand what they are told or what they should do. See OBIX for further documentation.
[2022-01-17 07:03] LABS: Rapid Plasma Reagin Non-Reactive (NonReactive)
--- NOTE | 2022-01-17 08:45 | WPDOBADMIT ---
Obstetrics - Admit Note Admission Note: record reviewed. Additions to the history and/or subsequent changes in the physical findings follow. 31 y/o at 39 1/7 weeks here for induction of labor. GBS neg. AVSS NST reactive TOCO: contractions irregularly ABD soft, nontender, gravid, vertex EXT nontender Cervix 2-3/50/-2. AROM with clear fluid. A: IUP at term, desiring induction of labor. P: Oxytocin. Anticipate .
[2022-01-17] MEDS: fentaNYL CITRATE INJ (*CRX) 100 MCG/2 ML VIAL IV PUSH ×2 (10:47→12:09)
--- NOTE | 2022-01-17 12:28 | PM.OBPNLAB ---
Pain Control Date/time seen: 01/17/22 12:28 Feeling more painful contractions. AVSS NST reactive TOCO: contractions every 2-4 min Cervix 2-3/50-2. IUPC placed. Continue labor.
[2022-01-17] MEDS: ONDANSETRON INJ 4 MG/2 ML VIAL IV PUSH (19:58)
[2022-01-17] MEDS: IBUPROFEN 600 MG TABLET PO (21:25)
--- NOTE | 2022-01-17 21:41 | PM.OBPRVD ---
OB - Delivery Note Procedure Delivery date: 01/17/22 Procedure: Induction of labor with Induction method: Per Pitocin Protocol Delivery augmentation: Rupture of Membranes Delivery monitor: External FHT, External Uterine and Internal Uterine Route of delivery: Laceration Description: None Specimen: Yes (cord blood) Quantitative Blood Loss (ml): 140 Anesthesia type: Epidural Disposition: PACU Complications: None Narrative: 31 y/o at 39 1/7 weeks gestation who presented to the hospital for induction of labor. Oxytocin was administered intravenously. Amniotomy was performed with return of clear fluid. She received an epidural for pain control. Her labor progressed and her cervix dilated completely. She pushed with good effort and delivered the infant's head to the perineum. A loose nuchal cord was splinted and the body delivered. The cord was reduced. The nose and mouth were bulb suctioned. After a delay, the cord was clamped and cut. The was handed off the field. Cord blood was collected. The placenta delivered spontaneously and was grossly normal in appearance. The usual 3 vessel cord was noted. Needle and instrument counts were correct. The patient was taken to recovery room in stable condition. The infant went to the nursery in stable condition. I was present and scrubbed for the entire delivery. [place] Baby Date of : 01/17/22 Time of : 21:28 Weeks of gestation at delivery: 39 Infant gender: Female Weight (pounds): 9 presentation: vertex position: Left Occiput Anterior Placenta delivery description: Spontaneous and Normal Configuration Cord Vessel Description: 3 Vessels, Nuchal Cord and Delayed Cord Clamping score one minute: 7 score five minutes: 9
--- NOTE | 2022-01-17 21:45 | PM.OBDSVD ---
DS: Admitting Diagnosis Discharge Date 01/19/22 Admitting Diagnosis IUP at 39 1/7 weeks DS: Discharge Diagnosis Discharge Diagnosis (1) (normal spontaneous vaginal delivery): Code(s): O80 - Encounter for full-term uncomplicated delivery Status: Acute OB - DS: Summary OB Procedures : None OB Procedures Intrapartum: Spontaneous Vag Delivery OB Procedures: : None DS: Data Data Completed and Pending Labs on day of discharge: Labs from last 24 hours 01/17/22 01/17/22 01/17/22 05:34 05:34 05:34 WBC 8.8 RBC 3.40 L Hgb 8.3 L D Hct 26.9 L MCV 79.1 L MCH 24.4 L MCHC 30.9 L RDW 14.8 H Plt Count 164 MPV 12.2 H Immature Gran % (Auto) 1.1 H Neut % (Auto) 65.8 Lymph % (Auto) 24.1 [place] % (Auto) 7.7 Eos % (Auto) 1.0 Baso % (Auto) 0.3 Lymph # (Auto) 2.13 [place] # (Auto) 0.7 H Eos # (Auto) 0.1 Baso # (Auto) 0.0 Abs Immat Gran (auto) 0.10 H Absolute Neuts (auto) 5.8 Absolute Nucleated RBC 0.0 Nucleated RBC % 0.0 RPR Non-reactive Blood Type A Positive Antibody Screen Negative Discharge Plan Discharge Attending physician on discharge: Yung Ibrahim Consulting providers: Faiza Leone ; Millie Krueger Discharging Clinician: Yung Ibrahim Patient Disposition: Home, Self-Care Activity: pelvic rest Diet: regular Discharge Instructions: Education: Mom and Baby Guide Given to: Mother Follow-Up: Call your delivering provider's office for an appointment to be seen in: 6 Weeks Mom and baby should come to the [facility] for the follow-up appointment. Appointment Date/Time: January 20, 2022 at 11:00 am What to expect at your follow-up visit: Blood Pressure Check Call [phone] if you are unable to keep your appointment time. BREAST CARE: * Wear a snug supportive bra. * For engorgement discomfort: Breast Feeding: * Apply warm moist washcloths * Express milk as needed to relieve engorgement * Wear loose clothing Bottle Feeding: * May apply ice packs * For sore nipples: * Identify correct latch-on * Apply warm moist washcloths before and after nursing * Air dry nipples after nursing * May apply Lansinoh cream to nipples PERINEAL CARE: * Until bleeding stops, use your codie bottle after urinating * Change your pad frequently throughout the day * You may take sitz baths several times a day (fill your bathtub with warm water and soak for 20 minutes.) Do NOT bathe in the water * No tub baths until seen by your physician - You may shower ACTIVITY: * Rest as much as possible. * Do not exercise or lift anything heavier than your baby (such as laundry or other children.) * Avoid stairs or driving as much as possible. * Do not put anything into the vagina. No douching, tampons, or sexual activity until seen by physician. NOTIFY PHYSICIAN IF YOU HAVE ANY QUESTIONS OR IF ANY OF THE FOLLOWING SYMPTOMS OCCUR: * If your perineum becomes red, swollen, or more painful than what you have experienced in the hospital. * If your vaginal bleeding becomes foul smelling. * If your vaginal bleeding becomes more heavy than a period or if your bleeding changes from pink to bright red. However, you may pass an occasional walnut-sized clot once or twice for the first week . * If you experience a sharp, shooting pain in you calves. * If you discover a hard, reddened area on your breast or if you experience flu-like symptoms. * If you have a fever of 100.4 or greater DIET: * Eat regular, well-balanced meals. * Drink plenty of fluids daily. If , drink to thirst.Call or return if temperature above 100.4? F, increased abdominal pain, increased vaginal bleeding or any new problems. Stand Alone Forms: General Discharge Information Follow-up/Referrals: Jhon Ibrahim
[2022-01-17] MEDS: OXYTOCIN 30 UNITS/NS 500 ML 30 UNITS/500 ML BAG 125 UNITS IV CONT (21:49)
[2022-01-17] MEDS: WITCH HAZEL 40 PADS 1 PAD TOPICAL (23:01)
[2022-01-17] MEDS: BENZOCAINE 20% AER SPR (*SP) 56 GM CAN 1 SPRAY TOPICAL (23:01)
[2022-01-17] MEDS: HYDROcodone/acetaminophen (*CRX) 5-325 MG TABLET 1 TAB PO (23:17)
[2022-01-18] VITALS: BP 121/66; PULSE 92; RESP 16; TEMP 36.8
[2022-01-18] MEDS: IBUPROFEN 600 MG TABLET PO ×2 (04:20→16:44)
[2022-01-18 05:07] LABS: Hematocrit 28.6 % (37.0-47.0); Hemoglobin 8.9 g/dL (12.0-15.0)
[2022-01-18 07:45] VITALS: BP 115/71; PULSE 77; RESP 16; TEMP 36.5; O2SAT 100
[2022-01-18 08:00] VITALS: PULSE 75; RESP 18; O2SAT 98
--- NOTE | 2022-01-18 09:55 | WPDANLDPN2 ---
Anes-Prog Note L&D Date/Time: 01/18/22 09:55 Comfortable throughout: labor and delivery Neuraxial method: epidural Epidural/Spinal procedure site: clean & non-tender Neuro status: Neuro function grossly intact. Cardiovascular status: normal Respiratory status: normal Airway patency: baseline Mental status: baseline Post-Op hydration status: normal Vital Signs: Last Vital Signs Temp 36.8 C 01/18/22 00:00 Pulse 92 01/18/22 00:00 Resp 16 01/18/22 00:00 BP 121/66 01/18/22 00:00 Pulse Ox 99 01/17/22 21:18 Pain score (VAS): 09/18 I/O: Intake & Output 01/17/22 01/18/22 01/18/22 23:59 07:59 15:59 Intake Total 1500 500 Output Total 336 Balance 1164 500 Post-procedural complaints: none Patient feedback: Patient satisfied with anesthetic care.
[2022-01-18 12:10] VITALS: BP 112/63; PULSE 75; RESP 18; TEMP 36.9; O2SAT 98
[2022-01-18] MEDS: HYDROcodone/acetaminophen (*CRX) 5-325 MG TABLET 1 TAB PO ×2 (12:14→19:58)
[2022-01-18] MEDS: FLUoxetine HCL 20 MG CAPSULE 40 MG PO (12:15)
[2022-01-18] MEDS: DOCUSATE SODIUM 100 MG CAPSULE PO ×2 (12:15→16:45)
[2022-01-18] MEDS: POLYSACCHARIDE IRON COMPLEX 150 MG CAPSULE PO ×2 (12:15→16:45)
[2022-01-18] MEDS: LANOLIN (LANSINOH) 7.5 GM CREAM 1 APPLIC TOPICAL (12:15)
[2022-01-18] MEDS: MULTIVIT/MIN/PREN/FOL AC/IRON TABLET 1 TAB PO (12:15)
--- NOTE | 2022-01-18 13:06 | PM.OBPNVD ---
OB - PN: Subj Subjective Date/time seen: 01/18/22 13:06 Narrative: Pain OK. OB - PN: Obj Data Labs CBC & Chem 7: 01/18/22 04:22 Labs: Laboratory Results - last 24 hr 01/18/22 04:22 Hgb 8.9 L Hct 28.6 L OB - PN A/P Plan Comments: A: PPD#1, doing well. P: Routine care. Exam Psych: Other: AVSS ABD soft, nontender, fundus firm EXT nontender
[2022-01-18 16:28] VITALS: BP 118/67; PULSE 88; RESP 16; TEMP 36.7; O2SAT 98
[2022-01-18 19:45] VITALS: BP 111/68; PULSE 87; RESP 16; TEMP 36.8
[2022-01-19 07:35] VITALS: BP 131/70; PULSE 75; RESP 16; TEMP 36.6; O2SAT 100
--- NOTE | 2022-01-19 08:00 | PC.NURSE ---
PT introductions made and plan of care discussed per post , pain management, breast feeding, daily care activities and pending discharge to home. PT and spouse both received instructions per one to one discussion, mom baby care guide and demonstrations. NO barriers to learning identified. PT verbalized understanding of such care.
[2022-01-19] MEDS: MULTIVIT/MIN/PREN/FOL AC/IRON TABLET 1 TAB PO (08:05)
[2022-01-19] MEDS: DOCUSATE SODIUM 100 MG CAPSULE PO (08:05)
[2022-01-19] MEDS: POLYSACCHARIDE IRON COMPLEX 150 MG CAPSULE PO (08:06)
[2022-01-19] MEDS: IBUPROFEN 600 MG TABLET PO (08:06)
[2022-01-19 08:07] VITALS: PULSE 75; RESP 16; O2SAT 100
[2022-01-19] MEDS: LANOLIN (LANSINOH) 7.5 GM CREAM 1 APPLIC TOPICAL (08:07)
[2022-01-19] MEDS: FLUoxetine HCL 20 MG CAPSULE 40 MG PO (08:07)
--- NOTE | 2022-01-19 12:00 | PC.NURSE ---
PT received discharge instructions per protocol and verbalized understanding of such care.
--- NOTE | 2022-01-19 12:20 | PC.NURSE ---
PT discharged to home ambulatory accompanied by spouse and and taken to waiting car. Follow up appts confirmed
[2022-01-20 11:19] VITALS: BP 132/84; PULSE 82; RESP 20; TEMP 36.8; O2SAT 100
== END 2022-01-19 12:20 | disposition home or self-care (01) | DRG 807 ==
LOC: ANHLDR 21:48 → ANHOB2 01-18 00:01
PROVIDERS: Admitting Provider Obstetrics & Gynecology; Visit Provider Obstetrics & Gynecology
DX: O69.81X0 Labor and delivery complicated by cord around neck, without compression, not applicable or unspecified (principal); Z37.0 Single live birth; Z3A.39 39 weeks gestation of pregnancy; O99.284 Endocrine, nutritional and metabolic diseases complicating childbirth; E04.1 Nontoxic single thyroid nodule
CPT/HCPCS: 36415; 85014; 85018; 85025; 86592; 86850; 86900; 86901; A9270; J2405; J2590; J2795; J3010; J7120

== ENCOUNTER 2022-10-08 11:49 | Emergency (ER) | payer BC, SELFPAY ==
[2022-10-08 11:54] VITALS: BP 133/74; PULSE 85; RESP 16; TEMP 36.3; O2SAT 99
--- NOTE | 2022-10-08 11:54 | ED.URI ---
HPI - URI/Sore Throat General Chief Complaint: Upper Respiratory Infection Stated Complaint: sore throat Time Seen by Provider: 10/08/22 11:54 Source: patient and RN notes reviewed History of Present Illness HPI Narrative: Patient is a 31-year-old female who presents to urgent care with complaints of a sore throat for 2 days. States that her daughter is currently being treated for strep throat. Denies any fever, nausea or vomiting. Patient has not taken anything [id number] for her symptoms. No other acute complaints. No acute distress noted. Patient aware of the plan of care. Some parts of this dictation were generated by voice recognition software and may contain typographical and/or grammatical inaccuracies. Related Data Home Medications Medication Instructions Recorded Confirmed dextroamphetamine-amphetamine ER 20 mg PO DAILY 10/08/22 10/08/22 20 mg 24hr capsule,extend release Allergies Allergy/AdvReac Type Severity Reaction Status Date / Time No Known Allergies Allergy Verified 01/10/22 13:15 Review of Systems Review of Systems: CONSTITUTIONAL: Denies fever, chills, or sweats. EYES: Denies visual changes, redness, or discharge. ENT: Denies rhinorrhea, congestion, otalgia. Reports of sore throat CARDIOVASCULAR: Denies chest pain, palpitations, or edema. RESPIRATORY: Denies cough or dyspnea. GASTROINTESTINAL: Denies abdominal pain, nausea, vomiting, or diarrhea. GENITOURINARY: Denies dysuria or hematuria. SKIN: Denies rash or itching. MUSCULOSKELETAL: Denies back pain, joint pain, or myalgia. NEUROLOGIC: Denies headache, numbness, or weakness. All other systems reviewed are negative, except as documented in HPI. [facility] Past Medical History Medical History Thyroid nodule Surgical History Surgical History History of LEEP (loop electrosurgical excision procedure) of cervix complicating Family History Family History Other No pertinent family history Social History Social History Smoking status: Never smoker Second hand tobacco smoke exposure: No Alcohol intake: never Substance use: never Substance use type: does not use Living arrangements: with family Gender identity (if verbalized by the patient): Female Spiritual care concerns: No Comments At the time of my signature, I reviewed and agree with the nursing past medical, surgical, social, and family history. There is no relevant family history pertinent to the patient complaint. Exam Narrative: GENERAL: This is a well-nourished, well-developed patient, in no apparent distress. HEAD: normocephalic, atraumatic. EYES: PERRL. Sclera clear/white. Vision is grossly intact. EARS: External ears normal, auditory canals clear and without drainage, TMs normal without perforation. Hearing grossly intact. NOSE: External nose normal with no obvious nasal discharge, nares without redness, no rhinorrhea. THROAT: Mucous membranes moist, mild erythema to posterior oropharynx with moderate postnasal drainage without exudate or ulceration. NECK: Neck supple, masses or thyromegaly. SKIN: warm, intact with no suspicious lesions or rash, good texture and turgor. NEURO: awake, alert, and oriented to person, place and time. There were no obvious focal neurologic abnormalities. EXTREMITIES: No clubbing, cyanosis, or edema. Course Course Level of Care: Express Care Visit Vital Signs Vital signs: Vital Signs Temperature 97.4 F L 10/08/22 11:54 Pulse Rate 85 10/08/22 11:54 Respiratory Rate 16 10/08/22 11:54 Blood Pressure 133/74 10/08/22 11:54 Pulse Oximetry 99 10/08/22 11:54 Oxygen Delivery Room Air 10/08/22 11:54 Temperature 97.4 F L 10/08/22 12:01 Pulse Rate 85 10/08/22 12:01
[2022-10-08 12:01] VITALS: BP 133/74; PULSE 85; RESP 16; TEMP 36.3; O2SAT 99
== END 2022-10-08 12:34 | disposition home or self-care (01) ==
PROVIDERS: Emergency Provider Nurse Practitioner Family; PCP Emergency Medicine
DX: J02.9 Acute pharyngitis, unspecified (principal)
CPT/HCPCS: 87081; 87880; 99213; G0463

== ENCOUNTER 2023-11-01 01:42 | Day surgery (SDC) | payer OTHER, SELFPAY ==
[2023-10-28 13:07] VITALS: BMI 22.4
--- NOTE | 2023-10-28 13:10 | PC.NURSE ---
Report to the Outpatient Waiting Room, entrance under the green pavilion located off [facility], at time 6:00 on date 11/01/23. Planned Procedure Time: 7:30. Time changes happen often and if your time is changed the preop area will call you the afternoon before. - You and your visitor will be asked to self-screen and do not enter if you have any COVID symptoms. - A mask is optional within the hospital at this time. Patients may have clear liquids (water, carbonated beverages, clear teas, apple juice) until 3 hours prior to surgery (4:30) with a maximum of 20 ounces. - No food from midnight until time of surgery Take the following medications with a SIP of water the morning of surgery: VRAYLAR DO NOT STOP ANY OF YOUR OTHER PRESCRIPTION MEDICATIONS PRIOR TO SURGERY ?EXCEPT THE FOLLOWING Medications to discontinue per physician: N/A Date to take last dose: N/A Please no make-up, nail burundian, hairspray, perfume, deodorant, or body powder the day of surgery. No jewelry (including any body piercings) or valuables the day of surgery, leave them at home. Please take a shower or bath the night before, or the morning of, surgery with an antibacterial soap. Wear comfortable, loose fitting clothing. - Jewelry must be removed prior to entering the operating room. Rings and piercings that are not removed may be cut off. - The hospital will not accept responsibility for valuables. - Please leave all valuables, including medications, at home the day of surgery. If you are going home after surgery, a licensed driver's education instructor must drive you home. - NO public transportation without another adult if you receive anesthesia. - We recommend that an adult stay with you for 24 hours following discharge. - We also recommend that you do not drive, make important decision, drink alcoholic beverages, or take any drugs that were not prescribed by your health care provider for at least 24 hours after your discharge time. Follow any additional instructions given to you from your surgeon. If you or anyone in your household have experienced Covid symptoms in the past week, please notify your surgeon or the nurse liaison at the phone number below for possible testing. Telephone instructions given to PT - PT - GREGG CAUSEY and asked if any additional questions and then verbalized understanding. Patient advised to call surgeon office or pre surgery nurse liaison [phone] if any additional questions.
[2023-11-01] VITALS (10 sets, daily range): BP systolic 96–119; BP diastolic 61–76; PULSE 75–109; RESP 12–18; TEMP 36.3–37.2; O2SAT 94–100
--- NOTE | 2023-11-01 05:58 | ECG_ITS ---
Measurements Intervals [place] Rate: 72 P: 68 MO: 154 QRS: 52 QRSD: 83 T: 41 QT: 381 QTc: 417 Interpretive Statements SINUS RHYTHM NORMAL ELECTROCARDIOGRAM NO PREVIOUS ECG AVAILABLE FOR COMPARISON Electronically Signed On 11-01-2023 12:39:53 ALIGNER by Sanjay Corbett M.D.
[2023-11-01] MEDS: LACTATED RINGERS 1,000 ML 30 ML IV CONT ×3 (06:30→14:19)
[2023-11-01 06:31] LABS: Urine Cotinine NEGATIVE
[2023-11-01 06:42] LABS: Hematocrit 38.8 % (37.0-47.0); Hemoglobin 12.6 g/dL (12.0-15.0)
--- NOTE | 2023-11-01 07:00 | WPDHPUPDATE1 ---
History and Physical Update Update Date/Time: 11/01/23 07:00 History and Physical has been reviewed, including an updated exam of the patient. There are NO changes in the patient's condition. Risks, benefits, and alternatives have been discussed and questions answered. Patient agrees to proceed with procedure.
--- NOTE | 2023-11-01 07:14 | WPDANESEPPF ---
Anes - Initial Pre Proc Eval Procedure: Operation Date: 11/01/23 07:30 Proposed Procedures p Bilateral Breast Mastopexy with Galaflex, - Virgilio Dawson MD s Bilateral Breast Augmentation, - Virgilio Dawson MD s Abdominoplasty with Liposuction - Virgilio Dawson MD Date/Time: 11/01/23 07:14 Surgeon: Virgilio Dawson MD Pre Op Diagnosis: breast ptosis,skin laxity, micromastia Patient Data Age: 32 Gender: F Height: 1.6 m Weight: 57.8 kg Last Vital Signs Temp 97.4 F L 11/01/23 06:08 Pulse 80 11/01/23 06:08 Resp 18 11/01/23 06:08 BP 96/61 L 11/01/23 06:08 Pulse Ox 100 11/01/23 06:08 O2 Del Method Room Air 11/01/23 06:08 Allergies Allergy/AdvReac Type Severity Reaction Status Date / Time No Known Allergies Allergy Verified 11/01/23 06:51 Home Medications Medication Instructions Recorded Confirmed Type atogepant 30 mg tablet (Qulipta) 30 mg PO HS 10/28/23 11/01/23 History cariprazine 1.5 mg capsule 1.5 mg PO DAILY 10/28/23 11/01/23 History (Vraylar) dextroamphetamine-amphetamine ER 30 mg PO DAILY 10/28/23 11/01/23 History 30 mg 24hr capsule,extend release Laboratory Tests 11/01/23 11/01/23 06:09 06:24 Hgb 12.6 D g/dL (12.0-15.0) Hct 38.8 % (37.0-47.0) Cotinine Negative Patient hx anesthesia problems: none Family hx anesthesia problems: none Results Review: All pre-operative results and documents have been reviewed as part of the pre-operative evaluation. [facility] Past Medical History Medical History Thyroid nodule Surgical History Surgical History History of LEEP (loop electrosurgical excision procedure) of cervix complicating Family History Family History Other No pertinent family history Social History Social History Smoking status: Never smoker Second hand tobacco smoke exposure: No Alcohol intake: current Alcohol use details: RARE Substance use: current Substance use type: marijuana Living arrangements: with family Gender identity (if verbalized by the patient): Female Spiritual care concerns: No Anes - Eval Final PreProcedure Day of Procedure 11/01/23 07:14 Patient weight: normal Heart: regular rate and rhythm Lungs: clear to auscultation Airway: Mallampati scale class II Neurological: alert and oriented Last oral intake: >/= 8 hours ASA classification: II Emergent: no Anesthetic plan: proceed Anesthesia type and monitoring: general Results Review: All pre-operative results and documents have been reviewed as part of the pre-operative evaluation. Informed Consent: The patient's anesthetic plan and its attendant risks and benefits were discussed with the patient/family/POA. Questions were solicited and answers provided to the satisfaction of the patient/family/POA.
--- NOTE | 2023-11-01 07:31 | W.PM.PROC2 ---
Procedure Note - Detailed Date of Procedure 11/01/23 Pre-op Diagnosis breast ptosis,skin laxity, micromastia Post-op Diagnosis Same Procedure Performed 1. Bilateral augmentation mastopexy with Galaflex 2. Progressive tension abdominoplasty with suction lipectomy Surgeon Virgilio Dawson MD Anesthesia General Findings Bilateral Sachin Qureshi SoftTouch 485cc Superior medial pedicle Right: REF# [id number] SN [id number] Left: REF# [id number] SN [id number] Galaflex REF# [id number] Lipoaspirate: 200 cc Tissue removed: 394 grams Description of Procedure They are here today for the above procedures. Previously and again today the risks, benefits, alternatives were discussed in extensive detail. I wanted them to be very realistic about the risks involved as well as expectations. We discussed aftercare and what to monitor for. I was very upfront about the risks of wound breakdown leading to loss of skin, open wounds, and need for additional procedures with permanent abdominal deformity. She declines [id number] and understands the limitations. They understand she may get a small vertical scar superior to lower abdominoplasty scar which was discussed in detail. She also declines posterior body lift and understands the limitations. We discussed DVT/PE risks and management. Made sure answered all of their questions to their satisfaction today and consent was obtained. They were marked in the preoperative holding area with their verification. The patient was taken to the operating room. Anesthesia was provided by anesthesiology. A Levi catheter was started. Posterior Placed prone on the operating room table with care taken to protect from injury. Prepped and draped in a standard sterile fashion. A surgical time-out was taken. Stab incisions were made and tumescent solution was infiltrated. Once adequate time was allowed for hemostasis a 5mm basket and 3mm multi hole cannula were utilized to complete suction lipectomy based on S.A.F.E. technique in multiple planes and passes. Suction lipectomy continued to result based on pre-operative planning, intra-operative observation, and rolling pinch test which were in full agreement. Patient was then placed supine with care taken to protect from injury. Breast 1% lidocaine and 0.25% Marcaine with epinephrine was used anesthetize as a field block. She was prepped and draped in a standard sterile fashion. Tegaderm nipple Blanchard were placed. A 15 blade used to make an incision just superior to the inframammary fold leaving a cusp of de-epithelized tissue at the t junction. Dissection was continued until the chest wall as identified. I incised the pectoralis major along its inferior border and completely released the inferior border leaving the medial border intact. I created a subpectoral pocket in the appropriate dimensions based on our preoperative planning for the implant. I then copiously irrigated with saline solution and verified a strict hemostasis. Next the use a triple antibiotic and Betadine containing solution to irrigate the pocket. I washed my gloves with the triple antibiotic and Betadine solution. We washed the implant immediately upon opening it with this solution and only opened it when we needed it. I used implant funnel and no-touch technique. The implant was introduced into the pocket using the funnel. Having verified positioning of the implant this was closed using 2-0 PDS. I tailor tacked the breast into position. Placed her in a sitting position. Verified the nipple-areolar location based on preoperative planning as well as intraoperative observations and measurements in full agreement. She was placed supine. I de-epithelialized the pedicle. I then removed the inferior central portion of the breast need making sure the implant was well protected. I elevated medial and lateral tissue flaps as well for planned closure. Galaflex was soaking on the back table
[2023-11-01] MEDS: ceFAZolin 2 GM/D5W 50 ML 2 GM/50 ML BAG IVPB (07:37)
[2023-11-01] MEDS: TRANEXAMIC ACID 1,000MG/ISO100 1,000 MG/100 ML BAG 200 MG IVPB (07:50)
[2023-11-01] MEDS: NACL 0.9% IRRIG POUR BOTTLE 900 ML, GENTAMICIN SULFATE INJ 160 MG, ceFAZolin 2 GM, POVI... IRRIGATION (08:06)
[2023-11-01] MEDS: BUPivacaine HCL 0.25% PF 30 ML VIAL 40 ML INFILTRATE (08:35)
[2023-11-01] MEDS: LIDO 1%/EPINEPHRINE 1:100,000 50 ML VIAL 40 ML INFILTRATE (08:35)
--- NOTE | 2023-11-01 09:03 | SUR.OPER ---
galaflex scaffold exp 2025-01-06, ref [id number], LOT [id number] OPENED 0850 AND PLACED IN PHARMACY ANTIBIOTIC SOLUTION ON STERILE FIELD.RECEIVED PER ePnnie ROSARIO RN BREAST IMPLANTS [facility]TE MOYER 485 BILATERAL RIGHT REF [facility] 485, SN [id number] EXP 2025-02-04, LEFT REF [facility]-485, [id number], EXP 2028-01-09. PLACED IMMEDIATELY IN PHARMACY ANTIBIOTIC SOLUTION.
--- NOTE | 2023-11-01 10:44 | SUR.OPER ---
10:40 ABDOMINOPLASTY SUPINE START TIME WITH INFILTRATION.
[2023-11-01] MEDS: BUPIVACAINE/EPINEPHRINE 0.5% 30 ML VIAL 60 ML INFILTRATE (11:20)
[2023-11-01] MEDS: ceFAZolin SODIUM 1 GM VIAL IV PUSH (12:18)
[2023-11-01] MEDS: LACTATED RINGERS IRRIG 1,000 ML, LIDOCAINE HCL 1% LOCAL INJ 50 ML, EPINEPHrine HCL INJ ... INFILTRATE (12:45)
[2023-11-01] MEDS: fentaNYL CITRATE INJ (*CRX) 100 MCG/2 ML VIAL 25 MCG IV PUSH ×5 (13:33→14:18)
[2023-11-01] MEDS: ONDANSETRON INJ 4 MG/2 ML VIAL IV PUSH (14:50)
[2023-11-01] MEDS: diphenhydrAMINE HCl INJ 50 MG/ML VIAL 12.5 MG IV PUSH (15:13)
[2023-11-01] MEDS: oxyCODONE HCL (*CRX) 5 MG TAB IR PO (15:50)
== END 2023-11-01 16:10 | disposition home or self-care (01) ==
PROVIDERS: Anesthesiology; PCP Nurse Practitioner; Visit Provider Surgery Plastic and Reconstructive Surgery
PROC: (CPT 19316; principal; 2023-11-01 07:30)
PROC: (CPT 19325; 2023-11-01 07:30)
PROC: (CPT 19325; 2023-11-01 07:30)
DX: Z41.1 Encounter for cosmetic surgery (principal); N64.81 Ptosis of breast; N64.82 Hypoplasia of breast; L57.4 Cutis laxa senilis
CPT/HCPCS: 19325; 15777 ×2; 15830; 15847; 15877; 80307; 85014; 85018; 93005; A9270; J0171; J0690; J1100; J1170; J1200; J1580; J2250; J2405; J2704; J3010; J7120

== ENCOUNTER 2024-12-16 09:06 | Emergency (ER) | payer BC, SELFPAY ==
[2024-12-16 09:14] VITALS: BP 108/65; PULSE 78; RESP 20; TEMP 36.8; O2SAT 99
--- OUTSIDE RECORDS SUMMARY | 2024-12-16 09:57 | XMS_ITS | Clinical Summary ---
Author Organization [facility] Address [address] [place] [address] Care Team Providers Care Machine Tool Operator Name Role Phone Afia Phillips NP Primary Care Provider [phone] Allergies No known active allergies Medications amphetamine-dext roamphetamine XR (ADDERALL XR) 30 MG 24 hr capsule Take 1 capsule (30 mg total) by mouth every morning. 07/24/2023 Active lamoTRIgine (LAMICTAL) 200 MG tablet Take 1 tablet (200 mg total) by mouth daily. 07/10/2023 Active ondansetron (ZOFRAN) 4 MG tabletIndication s:Nausea Take 1 tablet (4 mg total) by mouth every 8 (eight) hours as needed. 20 tablet 07/26/2023 Active rizatriptan (MAXALT) 5 MG tabletIndication s:Migraine with aura and without status migrainosus, not intractable Take 1 tablet (5 mg total) by mouth as needed for Migraine. May repeat in 2 hours if needed times one dose 8 tablet 08/01/2023 Active QULIPTA tabletIndication s:Daily headache,Migrain e with aura and without status migrainosus, not intractable TAKE 1 TABLET(30 MG) BY MOUTH DAILY 90 tablet 1 02/10/2024 Active Active Problems Problem Noted Date Diagnosed Date Attention deficit hyperactiv ity disorder (ADHD), combined type 07/26/2023 Daily headache 07/26/2023 Chronic neck pain 07/26/2023 Multinodular goiter (nontoxic) 05/21/2022 Overview (07/26/2023): Benign Cytology Last Assessment & Plan: Plan follow up neck US in one year Recheck TFT today Thyroid nodule 03/01/2022 Immunizations Name Administration Dates Next Due Fluzone 6 Months+ Quad (0.5 mL Prefilled Syringe ) 07/26/2023 Family History Medical History Relation Comments Hypertension Maternal Grandmother Hypertension Mother Brain cancer Paternal Grandmother Relation Status Comments Maternal Grandmother Mother Paternal Grandmother Social History Tobacco Use Types Packs/Day Years Used Date Smoking Tobacco: Never Passive Smoke Exposure: Past Smokeless Tobacco: Never Tobacco Cessation:Counseling Given: No Alcohol Use Standard Drinks/Week Comments Yes 0 (1 standard drink = 0.6 oz pur e alcohol) socially PHQ-2 Answer Date Recorded Patient Health Questionnaire-2 Score 2 07/26/2023 Comments No Sex and Gender Information Value Date Recorded Sex Assigned at Not on file Legal Sex Female 10:11 AM CDT Gender Identity Not on file Sexual Orientation Not on file Last Filed Vital Signs Vital Sign Reading Time Taken Comments Blood Pressure 94/64 07/26/2023 8:37 AM EMT PARAMEDIC Pulse 78 07/26/2023 8:37 AM EMT PARAMEDIC Temperature 36.7 C (98.1 F) 07/26/2023 8:37 AM EMT PARAMEDIC Respiratory Rate 16 07/26/2023 8:37 AM EMT PARAMEDIC Oxygen Saturation 100% 07/26/2023 8:37 AM EMT PARAMEDIC Inhaled Oxygen Concentration - - Weight 60.3 kg (133 lb) 07/26/2023 8:37 AM EMT PARAMEDIC Height 160 cm (5' 3 ) 07/26/2023 8:37 AM EMT PARAMEDIC Body Mass Index 23.56 07/26/2023 8:37 AM EMT PARAMEDIC Plan of Treatment Health Maintenance Due Date Last Done Comments Cervical Cancer Screening Pa p Smear (Age 30 to 64) Every 3 Years 1991 DTaP, Tdap and Td Vaccines ( 1 - Tdap) 11/16/2010 Hepatitis B Vaccines (1 of 3 - 19+ 3-dose series) 11/16/2010 Cervical Cancer Screening Pa p with HPV Testing (Age 30 to 64) Every 5 Years 11/16/2021 Cervical Cancer Screening with HPV 11/16/2021 COVID-19 Vaccine ( - 2023-2 5 season) 2024 Annual Physical 07/26/2024 07/26/2023 PHQ-2 (Physician [place]) 09/09/2024 07/26/2023 Hepatitis C Completed 09/13/2023 HPV Vaccines Aged Out No longer eligi ble based on patient's age to complete this topic Meningococcal B Vaccine Aged Out No l onger eligible based on patient's age to complete this topic Meningococcal Vaccine Aged Out No garcía basil eligible based on patient's age to complete this topic Pneumococcal Vaccine: Pediat rics (0 to 5 Years) and At-Risk Patients (6 to 64 Years) Aged Out No longer eligi ble based on patient's age to complete this topic RSV Immunizations Under 20 Months Aged Out No longer eligible based on patient's age to complete this topic Procedures Procedure Name Priority Date/Time Associated Diagnosis Comments HEPATITIS C ANTIBODY W/RFX TO HCV RNA Routine 09/13/2023 8:40 AM EMT PARAMEDIC Need for hepatitis C screening test from Last 3 Months or Most Recently Relevant to Health Maintenance Results * HEPATITIS C ANTIBODY W/RFX TO HCV RNA (09/13/2023 8:40 AM EMT PARAMEDIC) HEPATITIS C AB NON-REACT SAWYER NON-REACT SAWYER [facility] Comment: HCV antibody was non-reactive. There is no laboratory evidence of HCV infection. In most cases, no further action is required. However, if recent HCV exposure is suspected, a test for HCV RNA (test code 05757) is suggested. For additional information please refer to http://education.3CI/faq/WZF39f2 (This link is being provided for informational/ educational purposes only.) 09/13/2023 8:40 AM EMT PARAMEDIC 09/13/2023 8:41 AM EMT PARAMEDIC Narrative [employer] [facility] - 09/16/2023 2:18 PM EMT PARAMEDIC FASTING:YES FASTING: YES Resulting Agency Comment Performing Organization Information: Site ID: [id number] Name: [facility] Address: [facility] [place] [id number] Director: Vinayak Davis MD us Afiajulissa Phillips NP LABORATORY Final Res ult [facility] [id number] [place] [id number], from Last 3 Months or Most Recently Relevant to Health Maintenance Insurance [facility] Care Teams Machine Tool Operator Relationship Specialty Start Date End Date Afia Phillips NP [address] [place] [id number] PCP - General NURSE PRACTITIONER 06/20/23
--- OUTSIDE RECORDS SUMMARY | 2024-12-16 09:57 | XMS_ITS | Encounter Summary ---
Author Organization [facility] Address [address] [place] [id number] Care Team Providers Care Flight Follower Name Role Phone Afia Phillips NP Primary Care Provider [phone] Encounter Details Date Type Department Care Team (Late st Contact Info) Description 08/05/2023 [employer] Message Enc [facility] Medical [facility] Family Medicine [facility] [address] [place] [address] [facility] Provider Qulipta Social History Tobacco Use Types Packs/Day Years Used Date Smoking Tobacco: Never Passive Smoke Exposure: Past Smokeless Tobacco: Never Alcohol Use Standard Drinks/Week Comments Yes 0 (1 standard drink = 0.6 oz pur e alcohol) socially PHQ-2 Answer Date Recorded Patient Health Questionnaire-2 Score 2 07/26/2023 Comments No Sex and Gender Information Value Date Recorded Sex Assigned at Not on file Legal Sex Female 10:11 AM CDT Gender Identity Not on file Sexual Orientation Not on file documented as of this encounter Plan of Treatment Not on file documented as of this encounter Visit Diagnoses Not on filedocumented in this encounter Additional Health Concerns Assessment Noted Time PHQ-9 Depression Total Score: 10 023 8:43 AM AUGER MILL OPERATOR documented as of this encounter Care Teams Flight Follower Relationship Specialty Start Date End Date Afia Phillips NP [address] [place], [place] [id number] PCP - General NURSE PRACTITIONER 06/20/23 documented as of this encounter
--- OUTSIDE RECORDS SUMMARY | 2024-12-16 09:57 | XMS_ITS | Encounter Summary ---
Author Organization [facility] Address [address] [place] [address] Care Team Providers Care Clinic Receptionist Name Role Phone Afia Phillips NP Primary Care Provider [phone] Encounter Details Date Type Department Care Team (Late st Contact Info) Description 10/04/2023 [employer] Message Enc [facility] Medical Group Family Medicine [facility] [address] [place] [address] [facility] Provider update Social History Tobacco Use Types Packs/Day Years [...] Depression Total Score: 10 023 8:43 AM LEAD OXIDE MILL TENDER documented as of this encounter Care Teams Clinic Receptionist Relationship Specialty Start Date End Date Afia Phillips NP [address] [place], [place] [id number] PCP - General NURSE PRACTITIONER 06/20/23 documented as of this encounter
--- OUTSIDE RECORDS SUMMARY | 2024-12-16 09:57 | XMS_ITS | Referral Summary ---
Author Organization [facility] Address [address] [place] [address] Care Team Providers Care Typewriter Operator Automatic Name Role Phone No, Physician Primary Care Provider [phone] Allergies No known active allergies Medications FLUoxetine (PROzac) 20 mg capsule TK 1 C PO Q DAY 09/17/2019 Active Active Problems Problem Noted Date Diagnosed Date Multinodular goiter (nontoxic) 05/21/2022 Overview (05/21/2022): Benign Cytology Assessment & Plan (05/21/2022 11:05 AM CDT): Plan follow up neck US in one year Recheck TFT today Abnormal thyroid blood test 05/21/2022 Assessment & Plan (05/21/2022 11:09 AM CDT): H/o low TSH but patient was Will recheck TFT today Thyroid nodule 03/01/2022 Social History Tobacco Use Types Packs/Day Years Used Date Smoking Tobacco: Never Smokeless Tobacco: Never Tobacco Cessation:Counseling Given: Not Answered Alcohol Use Standard Drinks/Week Comments Not Currently 0 (1 standard drink = 0.6 oz pur e alcohol) Personal Safety Answer Date Recorded Getting School Help Needed Not on file 11/03 Comments Unknown Sex and Gender Information Value Date Recorded Sex Assigned at Not on file Legal Sex Female 6:06 PM CROP CONSULTANT Gender Identity Female 10/19/2021 7:51 AM CROP CONSULTANT Sexual Orientation Not on file Last Filed Vital Signs Vital Sign Reading Time Taken Comments Blood Pressure 122/76 05/21/2022 11:09 AM CDT Pulse 65 05/21/2022 11:09 AM CDT Temperature 36.5 C (97.7 F) 05/21/2022 11:09 AM CDT Respiratory Rate - - Oxygen Saturation - - Inhaled Oxygen Concentration - - Weight 95.2 kg (209 lb 12.8 oz) 022 11:09 AM CDT Height 160 cm (5' 3 ) 05/21/2022 11:09 AM CDT Body Mass Index 37.16 05/21/2022 11:09 AM CDT Plan of Treatment Not on file [place] [place] [employer] [place] [employer] [place] Care Teams Typewriter Operator Automatic Relationship Specialty Start Date End Date No, Physician PCP - General 09/25/19
--- OUTSIDE RECORDS SUMMARY | 2024-12-16 09:57 | XMS_ITS | Clinical Summary ---
Author Organization [facility] Address [address] [place] [address] Care Team Providers Care Checker Product Design Name Role Phone No, Physician Primary Care Provider [phone] Allergies No known active allergies Medications FLUoxetine [...] Will recheck TFT today Thyroid nodule 03/01/2022 Medical History Medical History Date Comments Anxiety Eating disorder Family History Medical History Relation Name Comments Cancer Maternal Grandmother Relation Name Status Comments Maternal Grandmother Social History Tobacco Use Types Packs/Day [...] on file Legal Sex Female 6:06 PM OPHTHALMOLOGIST RETINA SPECIALIST Gender Identity Female 10/19/2021 7:51 AM OPHTHALMOLOGIST RETINA SPECIALIST Sexual Orientation Not on file Obstetrics History Last Filed Vital Signs Vital Sign Reading [...] 05/21/2022 11:09 AM CDT Plan of Treatment Health Maintenance Due Date Last Done Comments Cervical Cancer Screening 1991 Depression Screening 1991 Hepatitis C Screening 1991 DTaP/Tdap/Td Vaccine (1 - Tdap) 11/16/2002 Varicella Vaccines (1 of 2 - 13+ 2-dose series) 11/16/2004 Hepatitis B Screening 11/16/2009 Regular Well Visit/Exam 18-64 11/16/2009 Influenza Vaccine (Season Ended) 2025 07/26/20 23 HPV Vaccines Aged Out No longer eligi ble based on patient's age to complete this topic Pneumococcal vaccine <65 Aged Out No longer eligible based on patient's age to complete this topic Insurance [facility] [place] Care Teams Checker Product Design Relationship Specialty Start Date End Date No, Physician PCP - General 09/25/19
[2024-12-16 09:59] LABS: EDCOVIDSCREEN Negative (Negative); EDINFLUASCREEN Negative (Negative); EDINFLUBSCREEN Negative (Negative); EDSTREPNEGPOS1 Negative (Negative)
--- NOTE | 2024-12-16 10:05 | ED.URI ---
HPI - URI/Sore Throat General Chief Complaint: Upper Respiratory Infection Stated Complaint: sore throat/body aches History of Present Illness HPI Narrative: 34-year-old female presented for complaint of sore throat body aches, headache and fatigue. Onset yesterday. Denies shortness of breath, wheezing, nausea vomiting, fevers . Taking Tylenol and ibuprofen. Related Data Home Medications ?Medication ?Instructions ?Recorded ?Confirmed ?Last Taken ?Type atogepant 30 mg tablet (Qulipta) 30 mg PO HS 10/28/23 11/01/23 Unknown History cariprazine 1.5 mg capsule 1.5 mg PO DAILY 10/28/23 11/01/23 Unknown History (Vraylar) dextroamphetamine-amphetamine ER 30 mg PO DAILY 10/28/23 11/01/23 Unknown History 30 mg 24hr capsule,extend release Allergies Allergy/AdvReac Type Severity Reaction Status Date / Time No Known Allergies Allergy Verified 12/16/24 09:42 Review of Systems Review of Systems: CONSTITUTIONAL: reports body aches, malaise denies fever, chills, or sweats. EYES: Denies visual changes, redness, or discharge. ENT:reports rhinorrhea, sore throat CARDIOVASCULAR: Denies chest pain, palpitations, or edema. RESPIRATORY: Denies dyspnea. GASTROINTESTINAL: Denies abdominal pain, nausea, vomiting, or diarrhea. SKIN: Denies rash, itching, or wounds. MUSCULOSKELETAL: Denies back pain, joint pain, or myalgia. NEUROLOGIC: Denies headache PMFSH Past Medical History Medical History Thyroid nodule Surgical History Surgical History History of LEEP (loop electrosurgical excision procedure) of cervix complicating Family History Family History Other No pertinent family history Social History Social History Smoking status: Never smoker Second hand tobacco smoke exposure: No Alcohol intake: current Alcohol use details: RARE Substance use: current Substance use type: marijuana Living arrangements: with family Gender identity (if verbalized by the patient): Female Spiritual care concerns: No Exam Narrative: GENERAL: well-appearing, no acute distress. EYES: conjunctivae clear ENT: Mucous membranes moist. TM pearly vieira with normal light reflex bilaterally; no tragal tenderness. Oropharynx not erythematous without lesions. Tonsils enlarged 1+ and without exudate. No drooling, no hoarseness, no trismus, uvula midline. No tripod positioning, hot potato voice, or soft palate swelling. NECK: Supple. No lymphadenopathy CHEST: Clear to auscultation, breath sounds equal. No respiratory distress, speaks in full sentences. HEART: Regular rate and rhythm. No murmur heard. SKIN: Warm, dry, no rash. NEURO: Alert and oriented x3. Course Course Emergency Course: Patient is aware of diagnosis, understands and agrees to treatment plan. Anticipatory guidance given. Patient agrees to follow-up as directed and is aware of reasons to seek care at the emergency department. Portions of this record may have been created with voice recognition software Level of Care: Express Care Visit Vital Signs Vital signs: Vital Signs Temperature 98.3 F 12/16/24 09:14 Pulse Rate 78 12/16/24 09:14 Respiratory Rate 20 12/16/24 09:14 Blood Pressure 108/65 12/16/24 09:14 Pulse Oximetry 99 12/16/24 09:14 Oxygen Delivery Room Air 12/16/24 09:14 Temperature 98.3 F 12/16/24 09:14 Pulse Rate 78 12/16/24 09:14 Respiratory Rate 20 12/16/24 09:14 Blood Pressure 108/65 12/16/24 09:14 Pulse Oximetry 99 12/16/24 09:14 Oxygen Delivery Room Air 12/16/24 09:14 MDM - URI/Sore Throat MDM Narrative Medical decision making narrative: Negative flu, COVID, strep result reviewed with pt. Advise supportive treatments. Patient is appropriate for outpatient treatment and follow-up. Differential Diagnosis Differential diagnosis: Likely upper respiratory infection, viral infection and pharyngitis Lab Data Labs: Lab Results 12/16/24 Range/Units 09:57 POC Influenza A Ag Negative (Negative) POC Influenza B Ag Negative (Negative) POC SARS CoV-2 Ag Negative (Negative) POC Grp A Strep Screen Negative (Negative) Discharge Plan Discharge Clinical Impression: Viral infection Patient Disposition: Home Condition: Stable Instructions: Antibiotic Form, Upper Respiratory Infection (ED) Additional Instructions: Rapid strep swab was negative today You will be notified in a few days if the culture comes back positive for strep, and appropriate antibiotics will be called in at that time. if symptoms are due to a viral illness, it is not treated with antibiotics. Viral symptoms can be present for up to 10-14 days. Recommendations: Flonase spray and Zyrtec for sinus congestion Cough syrup may cause drowsiness; avoid driving or take it at night time. Tylenol every 8 hours as needed for pain/fever Soft foods, cool liquids, warm tea. Gargle with warm saltwater twice a day. Chloraseptic spray and throat lozenges. Rest and stay hydrated. --Follow up with your PCP --Go to the ER immediately if you cannot swallow your saliva, trouble breathing/wheezing, throat swelling, pain is persistent and severe Patient Language: Mongolian Prescriptions: No Action dextroamphetamine-amphetamine 30 mg capsule,extended release 24hr 30 mg PO DAILY Vraylar 1.5 mg capsule 1.5 mg PO DAILY Qulipta 30 mg tablet 30 mg PO HS Follow-up/Referrals: Alan,JESENIA Jones [Primary Care Provider] - Time of Disposition: 10:10
== END 2024-12-16 10:21 | disposition home or self-care (01) ==
PROVIDERS: Emergency Provider Nurse Practitioner Family; PCP Nurse Practitioner
DX: B34.9 Viral infection, unspecified (principal); Z20.822 Contact with and (suspected) exposure to COVID-19
CPT/HCPCS: 87081; 87426; 87804; 87880; 99213; G0463

== ENCOUNTER 2025-03-19 07:15 | Outpatient (CLI) | payer BC, SELFPAY ==
--- NOTE | ~2025-03-19 | MR_ITS ---
MRI of the cervical spine Clinical History: Neck pain Technique: Axial T2-weighted and gradient images, and sagittal T1-weighted, T2-weighted, and STIR evie ges were acquired. Findings: There is minimal reversal normal cervical lordosis. No fracture or sublocation seen. No bon e marrow signal abnormality seen. At C2-C3, C3-C4, C4-C5, and C5-C6, there is no disc bulge or herniation. No spinal canal stenosis, co rd compression, or neural foraminal narrowing at these levels. At C6-C7, there is a central disc extrusion extending superiorly, resulting in mild compression of th e ventral cord. Neural foramina are preserved. No abnormal signal seen in the spinal cord. Paravertebral soft tissues are unremarkable. Impression: Central disc extrusion at C6-C7 extending superiorly, resulting in mild compression of the ventral co rd at this region. Reviewed, dictated and finalized at [facility]. Impression: Central disc extrusion at C6-C7 extending superiorly, resulting in mild misti barbara of the ventral cord at this region.
== END 2025-03-19 07:16 | disposition home or self-care (01) ==
PROVIDERS: PCP Nurse Practitioner; Visit Provider Nurse Practitioner
DX: G89.29 Other chronic pain (principal); V89.2XXD Person injured in unspecified motor-vehicle accident, traffic, subsequent encounter; M50.20 Other cervical disc displacement, unspecified cervical region
CPT/HCPCS: 72141